=== PATIENT | female | born 1990 | race African-American/Black ===

== ENCOUNTER 2017-04-22 12:06 | Emergency (ER) | payer SELFPAY ==
[2017-04-22] MEDS ORDERED: Ondansetron HCl/PF 4 MG/2 ML Vial ONE (12:37)
[2017-04-22 13:15] LABS: Hematocrit 36.6 % (36.0-47.0); Mean Platelet Volume 5.1 fL (7.4-10.4); Red Blood Cell (RBC) Count 5.32 mill/uL (4.20-5.40); White Blood Cell (WBC) Count 6.8 thou/uL (4.8-10.8)
[2017-04-22 13:22] LABS: PTT 28.5 SEC (22.9-36.1); Prothrombin Time 13.7 SEC (12.0-14.7)
[2017-04-22 13:34] LABS: ALT (SGPT) Less than 7 U/L (8-55); AST (SGOT) 11 U/L (5-34); Alkaline Phosphatase 55 U/L (40-150); Anion Gap 13 mmol/L (10-20); BUN (Urea Nitrogen) 8 mg/dL (7.0-18.7); Bilirubin, Total 0.4 mg/dL (0.2-1.2); Calc. Creatinine Clearance 0 mL/min (70-130); Calcium 9.6 mg/dL (7.8-10.44); Carbon Dioxide 22 mmol/L (22-29); Chloride 105 mmol/L (98-107); Estimated GFR-MDRD Greater than 90; Globulin 4.1 g/dL (2.4-3.5); Lipase 67 U/L (8-78); Magnesium 2.1 mg/dL (1.6-2.6); Protein, Total 8.4 g/dL (6.0-8.3)
[2017-04-22 13:41] LABS: #Basophils 0.1 thou/uL (0.0-0.2); #Eosinphils 0.2 thou/uL (0.0-0.7); #Lymphocytes 1.3 thou/uL (1.20-3.40); #Monocytes 0.6 thou/uL (0.11-0.59); #Neutrophils 4.6 thou/uL (1.40-6.50); %Basophils 1.3 % (0.0-1.0); %Eosinophils 2.3 % (0.0-10.0); %Lymphocytes 19.7 % (21.0-51.0); %Monocytes 9.4 % (0.0-10.0); Acanthocytes SLIGHT = 1-5 cells (100X) (None Seen); Anisocytosis SLIGHT = 6-15 cells (100X) (0-5/hpf); Microcytosis SLIGHT = 6-15 cells (100X) (0-5/hpf)
--- NOTE | 2017-04-22 14:24 | ULT ---
PELVIC ULTRASOUND: Date: 04/22/17 HISTORY: patient with abdominal pain and vaginal bleeding. TECHNIQUE: Multiplanar Hi scale and color Doppler images were obtained in a transabdominal pelvic ultrasound. Spectral analysis of the Doppler waveforms of the ovaries were performed. FINDINGS: There is a gestational sac within the uterus. This contains a yolk sac and a pole. [place]-rump length of the pole is 2.31 cm, which would estimate gestational age at 9 weeks/0 days. No feta l heart rate was able to be detected within the pole. There is complex material within the cervix, which likely represents blood. No free fluid is seen in the pelvis. Both ovaries are normal in size and appearance and demonstrate normal internal flow. IMPRESSION: demise with likely ongoing spontaneous . POS: [facility]
== END 2017-04-22 15:20 | disposition home or self-care (01) ==
LOC: ERS 12:06
DX: O03.4 Incomplete spontaneous abortion without complication (principal); K21.9 Gastro-esophageal reflux disease without esophagitis; I10 Essential (primary) hypertension; J45.909 Unspecified asthma, uncomplicated; F32.9 Major depressive disorder, single episode, unspecified; F17.210 Nicotine dependence, cigarettes, uncomplicated
CPT/HCPCS: 76856; 80053; 83690; 83735; 84702; 85025; 85610; 85730; 86900; 86901; 88305; 96361; 96374; 96375; J2270; J2405

== ENCOUNTER 2017-07-30 21:51 | Emergency (ER) | payer SELFPAY ==
[2017-07-30] MEDS ORDERED: Albuterol Sulfate 2.5 mg/0.5 ml Neb ONE (22:39)
--- NOTE | 2017-07-30 22:49 | RAD ---
TWO VIEWS CHEST: Date: 07-30-17 Provided Clinical History: Cough. Comparison: 10-06-08 FINDINGS: Cardiac and mediastinal silhouette is within normal limits. Lungs appear clear. No pleural fluid or p neumothorax apparent. IMPRESSION: No evidence for an acute cardiopulmonary process. POS: [facility]
[2017-07-30 23:17] LABS: Pregnancy Test - Urine (BHCG) Negative (Negative); Pregu Control Background? CLEAR/WHITE (CLR/WHITE); Pregu Control Bar Appear? YES (CONTROL BAR); Specific Gravity 1.018 (1.002-1.036)
[2017-07-31] MEDS ORDERED: predniSONE 20 MG TAB ONE (00:31)
[2017-07-31] MEDS ORDERED: Azithromycin 250 MG TAB ONE (00:31)
[2017-07-31] MEDS ORDERED: Ketorolac Tromethamine 60 MG/2 ML VIAL ONE (00:31)
== END 2017-07-31 00:58 | disposition home or self-care (01) ==
LOC: ERS 21:51
DX: J40 Bronchitis, not specified as acute or chronic (principal); K21.9 Gastro-esophageal reflux disease without esophagitis; I10 Essential (primary) hypertension; F17.210 Nicotine dependence, cigarettes, uncomplicated
CPT/HCPCS: 71046; 81025; 94640; 96372; J1885; J7506; J7611

== ENCOUNTER 2017-10-09 19:51 | Emergency (ER) | payer SELFPAY ==
[2017-10-09] MEDS ORDERED: Ondansetron HCl/PF 4 MG/2 ML Vial ONE (21:15)
[2017-10-09] MEDS ORDERED: Morphine 4 MG/ML VIAL ONE (21:15)
[2017-10-09 21:18] LABS: Mean Corpuscular Hemoglobin 17.3 pg (27.0-31.0); Mean Corpuscular Volume 59.7 fl (81.0-99.0); Mean Platelet Volume 5.4 fL (7.4-10.4); Platelet Count 183 thou/uL (130-400); RBC Distribution Width 20.5 % (11.5-14.5); Red Blood Cell (RBC) Count 5.22 mill/uL (4.20-5.40); White Blood Cell (WBC) Count 10.5 thou/uL (4.8-10.8)
[2017-10-09 21:32] LABS: ALT (SGPT) Less than 7 U/L (8-55); AST (SGOT) 12 U/L (5-34); Albumin 4.2 g/dL (3.5-5.0); Alkaline Phosphatase 69 U/L (40-150); Anion Gap 13 mmol/L (10-20); BUN (Urea Nitrogen) 4 mg/dL (7.0-18.7); Bilirubin, Total 0.7 mg/dL (0.2-1.2); Calc. Creatinine Clearance 0 mL/min (70-130); Calcium 9.4 mg/dL (7.8-10.44); Carbon Dioxide 21 mmol/L (22-29); Chloride 104 mmol/L (98-107); Estimated GFR-MDRD Greater than 90; Glucose 89 mg/dL (70-105); Potassium 3.2 mmol/L (3.5-5.1); Protein, Total 8.2 g/dL (6.0-8.3); Sodium 135 mmol/L (136-145)
[2017-10-09 21:35] LABS: Anisocytosis SLIGHT = 6-15 cells (100X) (0-5/hpf); Hypochromia MODERATE=16-30 cells (100X) (0-5/hpf); Lymphocytes 6 % (21-51); MDiff Complete? YES; Microcytosis MODERATE=15-30 cells (100X) (0-5/hpf); Monocytes 8 % (0-10); Neutrophil 86 % (42-75); PLT Morphology Comment Appears Adequate; Reflex for Review?? YES
[2017-10-09] MEDS ORDERED: Lidocaine 1% (PF) 30 ML VIAL ONE (21:44)
[2017-10-09] MEDS ORDERED: HYDROcodone/Acetaminophen 5/325 mg Tablet ONE (23:11)
[2017-10-10] MEDS ORDERED: Cephalexin 250 MG CAP ONE (00:48)
== END 2017-10-10 00:59 | disposition home or self-care (01) ==
LOC: ERS 19:51
DX: L02.31 Cutaneous abscess of buttock (principal); K21.9 Gastro-esophageal reflux disease without esophagitis; I10 Essential (primary) hypertension; J45.909 Unspecified asthma, uncomplicated; F17.210 Nicotine dependence, cigarettes, uncomplicated; Z71.6 Tobacco abuse counseling
CPT/HCPCS: 10060; 36415; 80053; 85025; 85060; 87070; 87076; 87205; 96361; 96374; 96375; 99406; J2001; J2270; J2405

== ENCOUNTER 2018-01-23 16:28 | Emergency (ER) | payer SELFPAY ==
--- NOTE | 2018-01-27 01:02 | EKG ---
Test Reason : Blood Pressure : / mmHG Vent. Rate : 063 BPM Atrial Rate : 063 BPM P-R Int : 164 ms QRS Dur : 088 ms QT Int : 448 ms P-R-T Axes : 067 069 049 degrees QTc Int : 458 ms Normal sinus rhythm with sinus arrhythmia Possible Left atrial enlargement Nonspecific T wave abnormality Abnormal ECG Confirmed by YOSEF HANEY DO ([id number]), multimedia editor SALAS OJEDA ([id number]) on 01/27/2018 1:01:54 AM Referred By: Confirmed By:YOSEF HANEY DO
== END 2018-01-23 18:34 | disposition home or self-care (01) ==
LOC: ERS 16:28
DX: I10 Essential (primary) hypertension (principal); K21.9 Gastro-esophageal reflux disease without esophagitis; J45.909 Unspecified asthma, uncomplicated; F17.210 Nicotine dependence, cigarettes, uncomplicated
CPT/HCPCS: 93005

== ENCOUNTER 2018-12-27 17:23 | Emergency (ER) | payer SELFPAY ==
[2018-12-27 17:43] LABS: Bilirubin Small (Negative); Blood, Urine Negative (Negative); Clarity TURBID (Clear); Glucose, Urine (Dipstick) Negative (Negative); Leukocyte Small (Negative); Nitrite Negative (Negative); Protein, Urine (Dipstick) 30 mg/dL (Neg-Trace); Specific Gravity, Urine 1.031 (1.002-1.036)
[2018-12-27 17:45] LABS: Bacteria/HPF 2+ HPF (None Seen); Pregnancy Test - Urine (BHCG) POSITIVE (Negative); Pregu Control Background? CLEAR/WHITE (CLR/WHITE); Pregu Control Bar Appear? YES (CONTROL BAR); Specific Gravity 1.031 (1.002-1.036); WBC/HPF 21-50 HPF (0-3)
[2018-12-27 17:47] LABS: Pathc Cast-AUWi Flag 16.86 (0-2.49)
[2018-12-27 17:54] LABS: Hemoglobin 10.8 g/dL (12.0-16.0); Mean Corpuscular HGB CONC 32.2 g/dL (32.0-36.0); Mean Corpuscular Hemoglobin 22.7 pg (27.0-31.0); Mean Corpuscular Volume 70.6 fL (78.0-98.0); Mean Platelet Volume 9.7 fL (7.4-10.4); Platelet Count 203 thou/uL (130-400); RBC Distribution Width 18.3 % (11.5-14.5); Red Blood Cell (RBC) Count 4.77 mill/uL (4.20-5.40); White Blood Cell (WBC) Count 6.2 thou/uL (4.8-10.8)
[2018-12-27 17:55] LABS: Crystals/HPF 2+ CA OXALATE HPF (Negative); Hyaline Casts/LPF NONE SEEN LPF (0-3 Hyaline); Manual Microscopic Reviewed? No Path Casts Seen; RBC/HPF None Seen HPF (0-3)
[2018-12-27 18:14] LABS: #Basophils 0.1 thou/uL (0.0-0.2); #Eosinphils 0.2 thou/uL (0.0-0.7); #Lymphocytes 1.6 thou/uL (1.20-3.40); #Monocytes 0.5 thou/uL (0.11-0.59); #Neutrophils 3.8 thou/uL (1.40-6.50); %Basophils 1.5 % (0.0-1.0); %Eosinophils 3.8 % (0.0-10.0); %Lymphocytes 25.4 % (21.0-51.0); %Monocytes 7.6 % (0.0-10.0); %Neutrophils 61.7 % (42.0-75.0); Anisocytosis SLIGHT = 6-15 cells (100X) (0-5/hpf); Hypochromia SLIGHT = 6-15 cells (100X) (0-5/hpf); MDiff Complete? YES; Microcytosis SLIGHT = 6-15 cells (100X) (0-5/hpf); Platelet Morphology Comment Appears Adequate
== END 2018-12-27 20:16 | disposition left against medical advice (07) ==
LOC: ERS 17:23
DX: Z53.21 Procedure and treatment not carried out due to patient leaving prior to being seen by health care provider (principal)
CPT/HCPCS: 36415; 81003; 81015; 81025; 85025

== ENCOUNTER 2019-01-13 17:45 | Emergency (ER) | payer OTHER | END 2019-01-13 18:27 | disposition left against medical advice (07) | LOC: ERS 17:45 | DX: Z53.21 Procedure and treatment not carried out due to patient leaving prior to being seen by health care provider (principal) ==

== ENCOUNTER 2019-01-14 10:25 | Emergency (ER) | payer OTHER ==
--- NOTE | 2019-01-14 11:31 | ULT ---
Ultrasound abdomen limited: Right lower quadrant DATE: 01/14/2019 HISTORY: 28-year-old female with right lower quadrant abdominal pain. Nausea. FINDINGS: The appendix is not visualized. IMPRESSION: Nondiagnostic for appendicitis.
[2019-01-14 11:37] LABS: Bilirubin Negative (Negative); Blood, Urine Negative (Negative); Glucose, Urine (Dipstick) Negative (Negative); Leukocyte Negative (Negative); Nitrite Negative (Negative); Protein, Urine (Dipstick) Negative (Neg-Trace); Urobilinogen 0.2 mg/dL (Less than 2)
[2019-01-14 11:42] LABS: Clarity Clear (Clear); Pregnancy Test - Urine (BHCG) POSITIVE (Negative)
[2019-01-14 11:43] LABS: Pregu Control Background? CLEAR/WHITE (CLR/WHITE); Pregu Control Bar Appear? YES (CONTROL BAR)
--- NOTE | 2019-01-14 11:59 | ULT ---
Ultrasound early obstetrical: DATE: 01/14/2019 HISTORY: 28-year-old female in early presents with right lower quadrant abdominal/pelvic pain. FINDINGS: Uterus: 12.5 x 6.5 x 10 cm. Right ovary: 3.5 x 2.5 x 3 cm. Blood flow demonstrated. Left ovary: 4.5 x 2 x 2.5 cm. Blood flow demonstrated. 2.2 x 2 x 2 cm doughnut-shaped lesion in left ovary with 1.2 cm central cystic component with interme diate echoes. Perhaps this is a hemorrhagic corpus luteal cyst. Intrauterine gestational sac. Thin hypoechoic crescentic stripe around gestational sac probably fluid, probably blood. pole crown-rump length: 6.4 cm 12 weeks 5 days. heart rate: 163 bpm. No free fluid in cul-de-sac identified. IMPRESSION: 1. First trimester intrauterine live gestation. 2. Estimated gestational age 12 weeks 5 days. 3. Probable small amount of subchorionic hemorrhage. 4. Questionable corpus luteal hemorrhagic cyst in left ovary.
== END 2019-01-14 12:18 | disposition home or self-care (01) ==
LOC: ERS 10:25
DX: O99.89 Other specified diseases and conditions complicating pregnancy, childbirth and the puerperium (principal); R10.31 Right lower quadrant pain; I10 Essential (primary) hypertension; O99.331 Smoking (tobacco) complicating pregnancy, first trimester; F17.210 Nicotine dependence, cigarettes, uncomplicated; Z79.899 Other long term (current) drug therapy; Z3A.13 13 weeks gestation of pregnancy
CPT/HCPCS: 76705; 76856; 81003; 81025; 93976

== ENCOUNTER → 2019-04-02 | Day surgery (SDC) | payer OTHER ==
[~2019-04-02] MED LIST: Potassium Chloride 20 MEQ TAB PO SCH; hydrALAZINE 20 MG/ML VIAL SLOW IVP PRN
[2019-04-02 03:55] VITALS: BP 131/89; TEMP 98.4; BMI 23.6
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
[2019-04-02 05:30] LABS: #Basophils 0.1 thou/uL (0.0-0.2); #Eosinphils 0.2 thou/uL (0.0-0.7); #Monocytes 0.7 thou/uL (0.11-0.59); #Neutrophils 6.8 thou/uL (1.40-6.50); %Basophils 0.6 % (0.0-1.0); %Eosinophils 1.8 % (0.0-10.0); %Lymphocytes 20.4 % (21.0-51.0); %Monocytes 6.9 % (0.0-10.0); %Neutrophils 70.4 % (42.0-75.0); Hemoglobin 9.6 g/dL (12.0-16.0); Mean Corpuscular HGB CONC 33.6 g/dL (32.0-36.0); Mean Corpuscular Hemoglobin 24.6 pg (27.0-31.0); Mean Corpuscular Volume 73.2 fL (78.0-98.0); Mean Platelet Volume 9.8 fL (7.4-10.4); Platelet Count 158 thou/uL (130-400); RBC Distribution Width 14.5 % (11.5-14.5); White Blood Cell (WBC) Count 9.7 thou/uL (4.8-10.8)
[2019-04-02 06:06] LABS: ALT (SGPT) 13 U/L (8-55); AST (SGOT) 12 U/L (5-34); Albumin 3.4 g/dL (3.5-5.0); Alkaline Phosphatase 53 U/L (40-110); Anion Gap 11 mmol/L (10-20); BUN (Urea Nitrogen) Less than 4 mg/dL (7.0-18.7); Bilirubin, Total 0.4 mg/dL (0.2-1.2); Calc. Creatinine Clearance 144 mL/min (70-130); Calcium 8.9 mg/dL (7.8-10.44); Carbon Dioxide 22 mmol/L (22-29); Chloride 105 mmol/L (98-107); Estimated GFR-MDRD Greater than 90; Globulin 3.4 g/dL (2.4-3.5); Glucose 67 mg/dL (70-105); Protein, Total 6.8 g/dL (6.0-8.3); Sodium 135 mmol/L (136-145)
[2019-04-02 06:18] LABS: INR-International Normal Ratio 1.1; PTT 29.2 SEC (22.9-36.1); Prothrombin Time 14.2 SEC (12.0-14.7)
[2019-04-02 06:53] LABS: Bilirubin Negative (Negative); Blood, Urine Negative (Negative); Clarity Extra Turbid (Clear); Glucose, Urine (Dipstick) Normal (Negative); Leukocyte Negative Leu/uL (Negative); Nitrite Negative (Negative); Protein, Urine (Dipstick) 20 mg/dL (Neg-Trace); Squamous Epithelial 0-3 HPF (0-3)
[2019-04-02 06:55] LABS: Amphetamine Not Detected (NotDetected); Barbiturates Screen Not Detected (NotDetected); Benzodiazepine Screen Not Detected (NotDetected); Cocaine Metabolite Screen Not Detected (NotDetected); Medtox Control Line Valid? VALID (VALID); Medtox Reader # READER 4; Methadone Not Detected (NotDetected); Methamphetamine Not Detected (NotDetected); Opiate Screen Not Detected (NotDetected); Oxycodone Screen Not Detected (NotDetected); Phencyclidine (PCP) Not Detected (NotDetected); THC/Cannabinoid Screen Detected (NotDetected); Tricyclic Screen Not Detected (NotDetected)
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
[2019-04-02 07:24] LABS: Bacteria/HPF 1+ HPF (None Seen)
[2019-04-02 07:25] LABS: RBC/HPF 0-3 HPF (0-3)
[2019-04-02 07:28] LABS: Urine Culture Reflex Yes Yes
--- NOTE | 2019-04-02 15:27 | PDOC.EVN ---
Event Note - Event Note Event Note: Apparently patient d/c'd without BPP, but with reassuring NST and no ctx per report. Will ensure she has f/u in clinic.
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
== END | disposition home or self-care (01) ==
LOC: L&D/OP 02:58
PROVIDERS: ATTEND Emergency Medicine
DX: O99.89 Other specified diseases and conditions complicating pregnancy, childbirth and the puerperium (principal); R10.30 Lower abdominal pain, unspecified; O10.912 Unspecified pre-existing hypertension complicating pregnancy, second trimester; O99.512 Diseases of the respiratory system complicating pregnancy, second trimester; J45.909 Unspecified asthma, uncomplicated; O99.332 Smoking (tobacco) complicating pregnancy, second trimester; F17.210 Nicotine dependence, cigarettes, uncomplicated; Z3A.24 24 weeks gestation of pregnancy; Z79.82 Long term (current) use of aspirin; Z79.899 Other long term (current) drug therapy
CPT/HCPCS: 36415; 76815; 80053; 80306; 81001; 85025; 85384; 85610; 85730; 87086

== ENCOUNTER 2019-04-26 14:12 | Day surgery (SDC) | payer OTHER ==
[2019-04-26 15:08] VITALS: BP 115/75; TEMP 98.5; BMI 25.2
[2019-04-26] MEDS ORDERED: Acetaminophen 500 MG TAB ONE (15:18)
[2019-04-26] MEDS: Acetaminophen 500 MG TAB ONE (15:19)
[2019-04-26] MEDS ORDERED: Acetaminophen 500 MG TAB PO SCH (15:30)
[2019-04-26] MEDS ORDERED: Iron Sucrose Complex 500 MG in Sodium Chloride 0.9% 250 ML 250 ML IVPB SCH (16:00)
[2019-04-26 16:01] LABS: Iron 24 ug/dL (50-170); Iron Binding Capacity, Total 480 mcg/dL (265-497)
[2019-04-26 16:28] LABS: Ferritin 10.99 ng/mL (10-291)
--- NOTE | 2019-04-26 19:23 | PDOC.FPROB ---
FMR OB H&P: HPI - History of Present Illness Chief Complaint: Iron Transfusion Indentification: History of Present Illness: Pt is a 28 yo at 27.5 weeks by lmp c/w 10.3 week sono w/ hx of cHTN who presents for an iron transfusion as she is unable to tolerate PO iron. Hgb 9.6 on 04/18. She is coming from [facility], PCP - Dr. Grullon. She states she has been fatigued for the previous couple of weeks. She denies ROM, bleeding. She did endorse smoking, has not received her flu shot. 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 - Surgical History Sx History: none - Social History Social History: smokes 1/2-1 ppd, denies drug use, denies alcohol use - Family History Family History: non-contributory FMR OB H&P: Medications - Current Home Medications: Medication Instructions Recorded Confirmed Type Aspirin [Adult Low Dose Aspirin EC] 81 mg PO DAILY 04/02/19 04/26/19 History Ferrous Sulfate 1 tablet PO DAILY 04/02/19 04/26/19 History Nitrofurantoin Monohyd/M-Cryst 100 mg PO BID #10 cap 04/02/19 04/26/19 Rx [Macrobid] Pnv No.95/Ferrous Fum/Folic AC 1 tablet PO DAILY 04/02/19 04/26/19 History [ Formula Tablet] Allergies/Adverse Reactions: Allergies Allergy/AdvReac Type Severity Reaction Status Date / Time No Known Allergies Allergy Verified 04/26/19 15:03 FMR OB H&P: ROS - Review of Systems General: reports: fatigue. denies: fever/chills, weight/appetite/sleep changes ENT: denies: nasal congestion, rhinorrhea Cardiovascular: denies: chest pain, palpitation, edema Respiratory: denies: cough, congestion, shortness of breath Gastrointestinal: denies: abdominal pain, indigestion, bloating Genitourinary (Female): denies: incontinence, dysuria, hematuria Musculoskeletal: denies: pain, stiffness Neurologic: denies: numbness, syncope Integumentary: denies: itching, rash FMR OB H&P: Vital Signs - Maternal Vital signs: Vital Signs - First Documented Temp Pulse Resp BP Pulse Ox 98.5 F 86 18 115/75 97 04/26/19 15:02 04/26/19 15:02 04/26/19 15:02 04/26/19 15:02 04/26/19 15:02 - Heart Tones Baseline: 120 Variability: moderate FMR OB H&P: Physical Exam - Physical Exam General: NAD, awake, alert and oriented HEENT: PERRLA, EOMI Neck: FROM, trachea midline Heart: RRR, normal S1/S2, pulses present, no edema General: CTAB, no respiratory distress, no wheezing Abdomen: soft, gravid, non-tender, bowel sound present Musculoskeletal: normal gait and station, pulses present Neurological: cranial nerves II through XII intact, sensation to pain,touch and proprioception grossly normal Lymphatic: no purpura, no petechia FMR OB H&P: Results - Labs Lab results: Laboratory Results - last 24 hr 04/26/19 04/26/19 15:32 15:32 Iron 24 L TIBC 480 Ferritin 10.99 Vitamin B12 485 FMR OB H&P: A/P - Problem List (1) Anemia affecting Status: Acute Code(s): O99.019 - ANEMIA COMPLICATING , UNSPECIFIED TRIMESTER Disposition: Pt is a 28 yo at 27.5 wks here for an iron transfusion due to Hgb 9.6, unable to tolerate PO iron. # Anemia of - iron transfusion orders # cHTN - continue aspirin, BP 115/75 Dispo: d/c after iron transfusion Discussion: Date/Time: 04/26/191919 This H&P was discussed with [] and [] who agree with the above documentation and plan. Addendum - Attending - Attending Attestation Date/Time: 04/27/19 0983 I personally evaluated the patient and discussed the management with Dr. Villa I agree with the History, Examination, Assessment and Plan documented above with any addition or exceptions noted below. Present for iron infusion due to persistently low H&H and intolerance of PO iron. Infuse per protocol and d/c home after post infusion monitoring completed.
== END 2019-04-26 20:15 | disposition home or self-care (01) ==
LOC: L&D/OP 14:12
PROVIDERS: ATTEND Family Medicine
DX: O99.012 Anemia complicating pregnancy, second trimester (principal); D50.9 Iron deficiency anemia, unspecified; O10.912 Unspecified pre-existing hypertension complicating pregnancy, second trimester; O99.332 Smoking (tobacco) complicating pregnancy, second trimester; F17.210 Nicotine dependence, cigarettes, uncomplicated; O99.612 Diseases of the digestive system complicating pregnancy, second trimester; K02.9 Dental caries, unspecified; O34.12 Maternal care for benign tumor of corpus uteri, second trimester; D25.9 Leiomyoma of uterus, unspecified; Z3A.27 27 weeks gestation of pregnancy; Z79.82 Long term (current) use of aspirin; Z79.899 Other long term (current) drug therapy
CPT/HCPCS: 36415; 82607; 82728; 82747; 83540; 83550; 85014; J1756; J7050

== ENCOUNTER 2019-06-24 12:13 | Day surgery (SDC) | payer OTHER ==
[2019-06-24] MEDS ORDERED: hydrALAZINE 20 MG/ML VIAL SLOW IVP PRN (12:44)
--- NOTE | 2019-06-24 13:09 | PDOC.FPROB ---
FMR OB H&P: HPI - History of Present Illness Chief Complaint: elevated BP, leakage of fluid History of Present Illness: 29yo @ 36.1 by LMP c/w 10.3wk sono complicated by cHTN with superimposed preE, anemia, asthma, and tob abuse presents from clinic for elevated BP and leakage of fluid. Pt was at her routine OB appt this morning, had elevated BP to 154/98 with repeat to 138/80. Also complained of clear leakage of fluid for past 2 days described as wetting undergarments and worse with sitting and movement. Spec exam in office was negative for bleeding, discharge, or pooling of fluid. Was sent to L/D Triage for further eval and management. Pt endorses good movement, no change in vaginal discharge or vaginal bleeding. Does endorse low abdominal pressure for past week coming and going but always present, denies any acute contractions. Has had increased SOB for past week and slight worsening of LE edema. Endorses RUQ pain 2/2 baby being more in that location over past few weeks. Denies any fever/chills, JEFFERS, n/v, diarrhea, constipation. Primary Care Physician: [facility] Grullon/[facility] FMR OB H&P: Current - Care : 5 Para: 2113 Gestational age: 36.1 Due date: 07/21/19 Dating Criteria: LMP/10.3wk sono - OB Labs Blood type: B RH: positive Antibody Screen: negative HIV: negative RPR: negative HepBsAg: negative Rubella: immune Quad screen: negative Urine drug screen: positive (THC) Gonorrhea: negative Chlamydia: negative 1 hour gtt: 108 GBS: positive - Additional Ultrasound Additional: Placenta Anterior [place] 2% at 31.3 - low interval growth FMR OB H&P: History - Past Medical History PMH: Asthma - intermittent with last inhaler use about 1 year ago cHTN with superimposed preE Tob abuse Iron def Anemia THC abuse - OB History OB History: Premature delivery with daughter No PreE in past pregnancies, cHTN onset after last 8 years ago - 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 FMR OB H&P: Medications - Current Home Medications: Medication Instructions Recorded Confirmed Type Aspirin [Adult Low Dose Aspirin EC] 81 mg PO DAILY 04/02/19 06/24/19 History Pnv No.95/Ferrous Fum/Folic AC 1 tablet PO DAILY 04/02/19 06/24/19 History [ Formula Tablet] Allergies/Adverse Reactions: Allergies Allergy/AdvReac Type Severity Reaction Status Date / Time No Known Allergies Allergy Verified 06/24/19 12:36 FMR OB H&P: ROS - Review of Systems General: denies: fever/chills, weight/appetite/sleep changes, night sweats, fatigue Eyes: reports: floaters (chronic per pt). denies: eye pain, vision changes, scotomas ENT: denies: nasal congestion, rhinorrhea, sore throat Cardiovascular: denies: chest pain, palpitation Respiratory: reports: shortness of breath (for past week). denies: cough, congestion Gastrointestinal: reports: abdominal pain (lower, pressure-like). denies: nausea, vomiting, diarrhea, constipation Genitourinary (Female): reports: vaginal discharge (clear fluid for past 2 days) , vaginal pressure. denies: dysuria, vaginal pain, vaginal bleeding, contractions Neurologic: denies: syncope, seizures Integumentary: denies: rash FMR OB H&P: Vital Signs - Maternal Vital signs: BP 139/90 and 144/98. HR 85, RR 16, Tmax 98, 100% on RA. - Heart Tones Baseline: 140 (reactive) Variability: moderate Acceleration: present Deceleration: absent Category: category 1 [place] contractions every: none FMR OB H&P: Physical Exam - Physical Exam General: NAD, awake, alert and oriented (resting comfortably) HEENT: PERRLA, EOMI, MMM Neck: supple, trachea midline Heart: RRR, normal S1/S2, no murmurs/rubs/gallops, pulses present, no edema General: CTAB, no respiratory distress, good air movement, no rales/rhonchi, no wheezing Abdomen: soft, gravid, non-tender, bowel sound present, other (no RUQ tenderness to palpation) Neurological: no focal deficit Skin: no rash Lymphatic: no unusual bruising or bleeding Psychiatric: normal mood and affect FMR OB H&P: A/P - Problem List (1) Chronic hypertension with superimposed preeclampsia Current Visit: Yes Status: Acute Code(s): O11.9 - PRE-EXISTING HYPERTENSION WITH PRE-ECLAMPSIA, UNSP TRIMESTER (2) Tobacco abuse Current Visit: Yes Status: Chronic Code(s): Z72.0 - TOBACCO USE (3) Marijuana abuse Current Visit: Yes Status: Chronic Code(s): F12.10 - CANNABIS ABUSE, UNCOMPLICATED (4) IUGR (intrauterine growth restriction) Current Visit: Yes Status: Acute (5) Anemia affecting Current Visit: No Status: Chronic Code(s): O99.019 - ANEMIA COMPLICATING , UNSPECIFIED TRIMESTER (6) Asthma Current Visit: No Status: Chronic Code(s): J45.909 - UNSPECIFIED ASTHMA, UNCOMPLICATED Disposition: 29yo @ 36.1 by LMP c/w 10.3wk sono complicated by cHTN with superimposed preE, anemia, asthma, and tob abuse presents from clinic for elevated BP and leakage of fluid. #cHTN with superimposed preE - Records reviewed, BPs 140s/90s and most visits - BP in clinic 154/98 with repeat 138/80. First two in triage 139/90 and 144/98 , no severe range pressures, will cont to monitor - Cat 1 strip, accels, no decels, baseline 140, no contractions, will cont to monitor - Pr/Cr 0.34 at initial diagnosis of PrE about 2 weeks ago - No s/s of severe features on exam or history - Will obtain CBC, CMP, UA, Urine Pr/Cr and monitor BP - Has induction date of 07/04/19 #Leakage of fluid during 3rd trimester - 2 day history, clear vaginal fluid - Spec exam in clinic negative for pooling - Amnisure negative #IUGR - followed by MFM, likely 2/2 cHTN and superimposed preE and tob and fibroids - Rec delivery at 37-38wks, has induction date of 07/04/19 #GBS positive - will need abx at induction/labor #H/o delivery - On ike shots #Tob abuse - encouraged cessation, states she has not had a cigarrette all day, wants to quit #THC abuse - denies use during , UDS in early positive for THC, encourage cessation - UDS today #Asthma, intermittent - last inhaler use over 1 year ago PCP: CHAY Grullon/[facility] Dispo: Monitor BPs and FHT, PreE labs pending for severe features. Amnisure pending. Dispo pending labs and monitoring. Discussion: Date/Time: 06/24/19 1300 This H&P was discussed with Dr. Mosqueda and Dr. Montoya who agree with the above documentation and plan.
[2019-06-24 13:19] LABS: Bilirubin Negative (Negative); Blood, Urine Negative (Negative); Clarity Clear (Clear); Glucose, Urine (Dipstick) Normal (Negative); Leukocyte Negative Leu/uL (Negative); Nitrite Negative (Negative); Protein, Urine (Dipstick) 20 mg/dL (Neg-Trace); RBC/HPF 0-3 HPF (0-3); Squamous Epithelial 0-3 HPF (0-3); Urobilinogen Normal mg/dL (Less than 2); WBC/HPF 0-3 HPF (0-3)
[2019-06-24 13:24] LABS: Amnisure Test No Membranes Rupture (No Rupture)
[2019-06-24 13:25] LABS: Amnisure Internal Control QC ACCEPTABLE (ACCEPTABLE)
[2019-06-24 13:27] LABS: Mean Corpuscular HGB CONC 33.3 g/dL (32.0-36.0); Mean Corpuscular Hemoglobin 23.5 pg (27.0-31.0); Mean Corpuscular Volume 70.6 fL (78.0-98.0); Mean Platelet Volume 10.7 fL (7.4-10.4); Platelet Count 132 thou/uL (130-400); RBC Distribution Width 15.8 % (11.5-14.5); Red Blood Cell (RBC) Count 4.25 mill/uL (4.20-5.40); White Blood Cell (WBC) Count 5.9 thou/uL (4.8-10.8)
[2019-06-24 13:32] LABS: Creatinine, Urine 107.28 mg/dL (47-110)
[2019-06-24 13:40] LABS: Bacteria/HPF 1+ HPF (None Seen); Urine Culture Reflex Yes Yes
[2019-06-24 13:44] LABS: ALT (SGPT) Less than 7 U/L (8-55); AST (SGOT) 10 U/L (5-34); Albumin 3.3 g/dL (3.5-5.0); Alkaline Phosphatase 84 U/L (40-110); Anion Gap 9 mmol/L (10-20); BUN (Urea Nitrogen) Less than 4 mg/dL (7.0-18.7); Bilirubin, Total 0.4 mg/dL (0.2-1.2); Calc. Creatinine Clearance 0 mL/min (70-130); Calcium 8.5 mg/dL (7.8-10.44); Carbon Dioxide 24 mmol/L (22-29); Chloride 105 mmol/L (98-107); Estimated GFR-MDRD Greater than 90; Globulin 3.4 g/dL (2.4-3.5); Glucose 82 mg/dL (70-105); Protein, Total 6.7 g/dL (6.0-8.3); Sodium 135 mmol/L (136-145)
[2019-06-24 13:58] LABS: Amphetamine Not Detected (NotDetected); Barbiturates Screen Not Detected (NotDetected); Benzodiazepine Screen Not Detected (NotDetected); Cocaine Metabolite Screen Not Detected (NotDetected); Medtox Control Line Valid? VALID (VALID); Medtox Reader # READER 1; Methadone Not Detected (NotDetected); Methamphetamine Not Detected (NotDetected); Opiate Screen Not Detected (NotDetected); Oxycodone Screen Not Detected (NotDetected); Phencyclidine (PCP) Not Detected (NotDetected); THC/Cannabinoid Screen Not Detected (NotDetected); Tricyclic Screen Not Detected (NotDetected)
--- NOTE | 2019-06-24 14:48 | PDOC.BPN ---
<Manjinder Mosqueda - Last Filed: 06/24/19 14:46> - Brief Progress Note Urine Pr/Cr 0.32, was 0.33 last week in clinic CBC, CMP appropriate discussed case with Dr. Taveras, MFM agrees with betamethasone today and then tomorrow keep appt with MFM tomorrow Return to hospital for second dose of betamethasone tomorrow Discharged patient with strict precautions including BPs >160/110, has BP cuff at home, worsening JEFFERS, visual changes, or SOB. Also discussed labor precautions. Patient in understanding with plan, states she has no further questions. <Elio Montoya - Last Filed: 06/24/19 15:59> Addendum - Attending - Attending Attestation Date/Time: 06/24/19 9508 I personally evaluated the patient and discussed the management with Dr. Mosqueda/ Kishore. I agree with the History, Examination, Assessment and Plan documented above with any addition or exceptions noted below. 29 y.o. at 36.1 wks with h/o PreE superimposed on cHTN and IUGR here for eval of fluid leak and PreE progression. SROM ruled out. PreE ruled out. Will give 1st dose of Steroids in anticipation of late delivery risk to be repeated tomorrow after seeing MFM for BPP and growth as may need delivery prior to scheduled induction a week from Sunday. Strongly encoouraged smoking cessation. Kick counts advised.
[2019-06-24] MEDS ORDERED: Betamet Acet/Betamet Na Ph 30 MG/5 ML VIAL IM SCH (15:00)
== END 2019-06-24 14:56 | disposition home or self-care (01) ==
LOC: L&D/OP 12:13
PROVIDERS: ATTEND Family Medicine
DX: O11.3 Pre-existing hypertension with pre-eclampsia, third trimester (principal); O10.913 Unspecified pre-existing hypertension complicating pregnancy, third trimester; O36.5930 Maternal care for other known or suspected poor fetal growth, third trimester, not applicable or unspecified; O99.333 Smoking (tobacco) complicating pregnancy, third trimester; F17.210 Nicotine dependence, cigarettes, uncomplicated; O99.513 Diseases of the respiratory system complicating pregnancy, third trimester; J45.909 Unspecified asthma, uncomplicated; O99.89 Other specified diseases and conditions complicating pregnancy, childbirth and the puerperium; N89.8 Other specified noninflammatory disorders of vagina; O99.013 Anemia complicating pregnancy, third trimester; D50.9 Iron deficiency anemia, unspecified; Z3A.36 36 weeks gestation of pregnancy; Z79.82 Long term (current) use of aspirin
CPT/HCPCS: 36415; 80053; 80306; 81001; 82570; 84112; 84156; 85027; 87086; J0702

== ENCOUNTER 2019-06-25 14:40 | Day surgery (SDC) | payer OTHER ==
[2019-06-25 14:59] VITALS: BMI 26.2
[2019-06-25] MEDS ORDERED: Betamet Acet/Betamet Na Ph 30 MG/5 ML VIAL IM SCH (15:00)
== END 2019-06-25 15:10 | disposition home or self-care (01) ==
LOC: L&D/OP 14:40
PROVIDERS: ATTEND Family Medicine
DX: Z29.8 Encounter for other specified prophylactic measures (principal)
CPT/HCPCS: 96372

== ENCOUNTER 2019-07-04 18:00 | Inpatient (IN) | payer OTHER ==
[~2019-07-04 18:00] MED LIST changes: +PROPOFOL 200 MG/20 ML VIAL ONE; -Potassium Chloride 20 MEQ TAB PO SCH; +Succinylcholine Chloride 20 MG/ML 10 ml SYRINGE FS ONE; -hydrALAZINE 20 MG/ML VIAL SLOW IVP PRN
[2019-07-04 18:39] VITALS: BMI 25.7
--- NOTE | 2019-07-04 19:01 | PDOC.FPROB ---
FMR OB H&P: HPI - History of Present Illness Chief Complaint: IOL History of Present Illness: Pt is a @ 37.4 wks by LMP/10.3 week sono, ABDIRASHID 07/21/19 who presents for IOL 2/2 cHTN with superimposed Pre-E. She states she has episodes of blurry vision, RUQ pain, and pressures run 140's/100's at home. She denies any symptoms at this time. Pt is GBS positive. Continues with tobacco abuse, has hx of marijuana use during . She denies any contractions, rupture of membranes, vaginal discharge, vaginal bleeding, abdominal pain. Her previous pregnancies were vaginal deliveries without complications. She did not develop HTN until after her last . She has only required aspirin, seen by MFM who did not place pt on other medication. Hx of anemia requiring iron infusion, could not tolerate iron supplementation. FMR OB H&P: Current - Care : 5 Para: 2113 Gestational age: 37.4 Due date: 07/21/19 Dating Criteria: LMP/10.3 wk sono Course/Complications: cHTN with superimposed Pre-E Tobacco Abuse Marijuana use GBS positive - OB Labs Blood type: B RH: positive Antibody Screen: negative HIV: negative RPR: negative HepBsAg: negative Rubella: immune Quad screen: negative Urine drug screen: positive Gonorrhea: negative Chlamydia: negative GBS: positive H&H: 9.5/29.4 on 06/30 FMR OB H&P: History - Past Medical History PMH: HTN, Anemia, Depression, SAB x 1 - OB History OB History: SAB x 1, cHTN w/ superimposed Pre-E Previous pregnancies w/o complications, NVD - Surgical History Sx History: none - Social History Social History: 07/12 ppd tobacco, marijuana use - Family History Family History: non-contributory FMR OB H&P: Medications - Current Home Medications: Medication Instructions Recorded Confirmed Type Aspirin [Adult Low Dose Aspirin EC] 81 mg PO DAILY 04/02/19 07/04/19 History Pnv No.95/Ferrous Fum/Folic AC 1 tablet PO DAILY 04/02/19 07/04/19 History [ Formula Tablet] Sertraline HCl [Zoloft] 1 tab PO DAILY 07/04/19 07/04/19 History Allergies/Adverse Reactions: Allergies Allergy/AdvReac Type Severity Reaction Status Date / Time No Known Allergies Allergy Verified 07/04/19 18:37 FMR OB H&P: ROS - Review of Systems General: denies: fever/chills, weight/appetite/sleep changes ENT: denies: nasal congestion, rhinorrhea Cardiovascular: denies: chest pain, palpitation Respiratory: denies: cough, congestion Gastrointestinal: denies: abdominal pain, indigestion Genitourinary (Female): denies: incontinence, dysuria, hematuria Neurologic: denies: numbness, syncope Integumentary: denies: itching, rash Psychological: reports: depression. denies: anxiety FMR OB H&P: Vital Signs - Maternal Vital signs: 130/84, p 84 - Heart Tones Baseline: 140 Variability: moderate Acceleration: absent Deceleration: absent FMR OB H&P: Physical Exam - Physical Exam General: NAD, awake, alert and oriented Neck: supple, FROM Chest: non-tender to palpation Heart: RRR, normal S1/S2, no edema General: CTAB, no respiratory distress, good air movement, no wheezing Abdomen: soft, gravid, non-tender, bowel sound present Musculoskeletal: pulses present Neurological: cranial nerves II through XII intact, sensation to pain,touch and proprioception grossly normal Skin: no rash, capillary refill <2 seconds Lymphatic: no purpura, no petechia Psychiatric: good judgement and insight FMR OB H&P: A/P - Problem List (1) Chronic hypertension with superimposed preeclampsia Current Visit: No Status: Acute Code(s): O11.9 - PRE-EXISTING HYPERTENSION WITH PRE-ECLAMPSIA, UNSP TRIMESTER (2) HTN (hypertension) Current Visit: No Status: Acute Code(s): I10 - ESSENTIAL (PRIMARY) HYPERTENSION (3) IUGR (intrauterine growth restriction) Current Visit: No Status: Acute (4) Anemia affecting Current Visit: No Status: Chronic Code(s): O99.019 - ANEMIA COMPLICATING , UNSPECIFIED TRIMESTER (5) Marijuana abuse Current Visit: No Status: Chronic Code(s): F12.10 - CANNABIS ABUSE, UNCOMPLICATED (6) Tobacco abuse Current Visit: No Status: Chronic Code(s): Z72.0 - TOBACCO USE Disposition: Pt is a @ 37.4 wks by LMP/10.3 week sono, ABDIRASHID 1/13/20 who presents for IOL 2/2 cHTN with superimposed Pre-E: # IOL Initial assessment: finger tip, thick, high Denies contractions, vaginal fluid, bleeding, discharge - initiate cytotec at this time # cHTN w/ superimposed Pre-E # IUGR - monitor BP's; initial pressures not elevated - no symptoms at this time - start mg if needed # Tobacco Abuse - discuss cessation on discharge # Marijuana Use - Drug screen pending # Anemia - monitor; Hgb 9.5 on 06/30 # GBS positive - start penicillin Fluids: LR 125 mls/hr Diet: NPO Dispo: > 2 night stay Discussion: Date/Time: 07/04/191900 This H&P was discussed with [] and [] who agree with the above documentation and plan. Addendum - Attending - Attending Attestation Date/Time: 07/04/19 0845 I personally evaluated the patient and discussed the management with Dr. Villa I agree with the History, Examination, Assessment and Plan documented above with any addition or exceptions noted below. 29 yo at 37.4 wk. IOL for cHTN with superimposed pre-eclampsia. BP stable. GBS positive. SVE C/T/H. cytotec IOL. PNC started. Expectant management at this time. Patient has anemia and is s/p iron infusion but not taking PO iron due to GI upset. consider PP iron infusion if large blood loss.
[2019-07-04] MEDS ORDERED: Ondansetron PF 4 MG/2 ML Vial IVP PRN (19:02)
[2019-07-04] MEDS ORDERED: Promethazine HCl 25 MG/ML VIAL IM PRN (19:02)
[2019-07-04] MEDS ORDERED: Lidocaine 1% (PF) 30 ML VIAL SC PRN (19:02)
[2019-07-04] MEDS ORDERED: NS / Oxytocin 40 units/1000ml 1,000 ML IV PRN (19:02)
[2019-07-04] MEDS ORDERED: hydrALAZINE 20 MG/ML VIAL SLOW IVP PRN (19:02)
[2019-07-04 19:26] LABS: Hemoglobin 9.9 g/dL (12.0-16.0); Mean Corpuscular HGB CONC 33.8 g/dL (32.0-36.0); Mean Corpuscular Hemoglobin 23.3 pg (27.0-31.0); Mean Corpuscular Volume 69.1 fL (78.0-98.0); Mean Platelet Volume 11.5 fL (7.4-10.4); Platelet Count 159 thou/uL (130-400); RBC Distribution Width 16.2 % (11.5-14.5); Red Blood Cell (RBC) Count 4.25 mill/uL (4.20-5.40); White Blood Cell (WBC) Count 7.7 thou/uL (4.8-10.8)
[2019-07-04 19:35] LABS: ALT (SGPT) Less than 7 U/L (8-55); AST (SGOT) 9 U/L (5-34); Albumin 3.5 g/dL (3.5-5.0); Alkaline Phosphatase 94 U/L (40-110); Anion Gap 13 mmol/L (10-20); BUN (Urea Nitrogen) 4 mg/dL (7.0-18.7); Bilirubin, Total 0.5 mg/dL (0.2-1.2); Calc. Creatinine Clearance 153 mL/min (70-130); Calcium 8.6 mg/dL (7.8-10.44); Carbon Dioxide 22 mmol/L (22-29); Chloride 105 mmol/L (98-107); Estimated GFR-MDRD Greater than 90; Globulin 3.2 g/dL (2.4-3.5); Glucose 107 mg/dL (70-105); Protein, Total 6.7 g/dL (6.0-8.3); Sodium 137 mmol/L (136-145)
[2019-07-04 19:53] LABS: Syphilis Antibody Nonreactive (Nonreactive)
[2019-07-04] MEDS ORDERED: Penicillin G Potassium 5 MILL.UNITS in Sodium Chloride 0.9% 100 ML IVPB SCH (20:00)
[2019-07-04] MEDS ORDERED: Penicillin G 2.5 MILL.units 2.5 MILL.UNITS in Premix Bag 1 BAG IVPB SCH (20:00)
[2019-07-04] MEDS: Misoprostol 100 MCG TAB VAG SCH (20:22)
[2019-07-04 20:46] LABS: Amphetamine Not Detected (NotDetected); Barbiturates Screen Not Detected (NotDetected); Benzodiazepine Screen Not Detected (NotDetected); Cocaine Metabolite Screen Not Detected (NotDetected); Medtox Control Line Valid? VALID (VALID); Medtox Reader # READER 4; Methadone Not Detected (NotDetected); Methamphetamine Not Detected (NotDetected); Opiate Screen Not Detected (NotDetected); Oxycodone Screen Not Detected (NotDetected); Phencyclidine (PCP) Not Detected (NotDetected); THC/Cannabinoid Screen Not Detected (NotDetected); Tricyclic Screen Not Detected (NotDetected)
[2019-07-04 23:08] LABS: HBSAg Index 0.17 S/CO (0-0.99); Hep B Surf Ag Non-Reactive S/CO (NonReactive)
[2019-07-05] MEDS ORDERED: Bicitra 30 ML UDCUP ONE (00:14)
[2019-07-05] MEDS: Terbutaline Sulfate 1 MG/ML VIAL ONE ×2 (00:15→11:40)
[2019-07-05] MEDS ORDERED: MORPHINE 5 MG/10 ML PF VIAL ONE (00:20)
[2019-07-05] MEDS ORDERED: Ondansetron PF 4 MG/2 ML Vial ONE (00:20)
[2019-07-05] MEDS ORDERED: ePHEDrine/0.9% NaCl/PF SYRINGE 50 mg/10 ml ONE (00:20)
[2019-07-05] MEDS ORDERED: Oxytocin 10 UNITS/ML VIAL ONE ×2 (00:20→01:11)
--- NOTE | 2019-07-05 00:20 | PDOC.EVN ---
Event Note - Event Note Event Note: Residents paged by nursing staff at approx 1145 for concern for acute onset vaginal bleeding and abdominal pain. I evaluated the patient at beside with US. Concern for abruption on US. QBL 450 mL. patient has had had 1 severe BP and was treated with hydralazine. BP at time of my exam was 154/84. Given hx of cHTN w/ superimposed pre-eclampsia and now vaginal bleeding strong concern for abruption. patient SVE 1 cm and remote from delivery. Discussed R/B/A of continued labor vs primary c/s. Patient agreed to proceed with c/s due to concern for placental abruption. Anesthesia notified of urgent c/s.
[2019-07-05 01:14] LABS: Actual Bicarbonate (HCO3a) 26.5 mEq/L (22-28); Base Excess (BEa) -0.5 mEq/L (-2.0 to +3.0)
[2019-07-05 01:16] LABS: Actual Bicarbonate (HCO3v) 25 mEq/L (22-28); Base Excess -1.4 mEq/L (-2.0 to +3.0); pH (Cord, venous) 7.33 (7.32-7.43)
--- NOTE | 2019-07-05 01:24 | PDOC.LDPN ---
Labor & Delivery Progress Note - Subjective Subjective: comfortable, painful contractions, no concerns - Objective General: NAD, resting Uterine fundus: non tender Dilation: 1 Effacement: 25% Station: -2 FHT: category 1, variability present - Assessment (1) Chronic hypertension with superimposed preeclampsia Code(s): O11.9 - PRE-EXISTING HYPERTENSION WITH PRE-ECLAMPSIA, UNSP TRIMESTER Current Visit: No Status: Acute (2) HTN (hypertension) Code(s): I10 - ESSENTIAL (PRIMARY) HYPERTENSION Current Visit: No Status: Acute (3) IUGR (intrauterine growth restriction) Current Visit: No Status: Acute (4) Anemia affecting Code(s): O99.019 - ANEMIA COMPLICATING , UNSPECIFIED TRIMESTER Current Visit: No Status: Chronic Plan: continue plan of care -: Continue plan of care. Pt received cytotec. No complaints at this time. FHT's reassuring. Mother's BP's high normal.
[2019-07-05] MEDS ORDERED: Promethazine HCl 25 MG/ML VIAL IM PRN (01:54)
[2019-07-05] MEDS ORDERED: Meperidine HCl/PF 25 MG/ML VIAL SLOW IVP PRN (01:54)
[2019-07-05] MEDS ORDERED: Naloxone HCl 0.4 mg/ml Vial IVP PRN ×2 (01:54)
[2019-07-05] MEDS ORDERED: L&D-Morphine 4 MG/ML VIAL SLOW IVP PRN (01:54)
[2019-07-05] MEDS ORDERED: Promethazine HCl 25 MG SUPP PR PRN (01:54)
[2019-07-05] MEDS ORDERED: HYDROmorphone 2 MG/ML VIAL SLOW IVP PRN (01:54)
[2019-07-05] MEDS ORDERED: Ondansetron HCl/PF 4 MG/2 ML Vial IVP PRN (01:54)
[2019-07-05] MEDS ORDERED: Naloxone HCl 0.4 mg/ml Vial IV PRN (01:54)
[2019-07-05] MEDS ORDERED: Ondansetron PF 4 MG/2 ML Vial IVP PRN (01:54)
[2019-07-05] MEDS ORDERED: diphenhydrAMINE 50 MG/ML VIAL IVP PRN (01:54)
--- NOTE | 2019-07-05 01:58 | PDOC.OPDEL ---
OB Operative/Delivery Note Delivery Dr/Surgeon: Max Wall Assist: Pablo Pre-Delivery Diagnosis: medically indicated induction, non-reassuring tracing (concern for placental abruption) Procedure/Post Delivery Dx: primary low transverse CS Weeks gestation: 37 (37.5) Anesthesia: other (general) - Findings A Sex: male - 1 min: 8 - 5 min: 8 - Additional Findings/Plan Placenta delivered: spontaneous findings: low transverse hysterotomy without extension Estimated blood loss: 665 Compilations/Other Findings: Date of Procedure: 07/05/2019 Resident Surgeon: Max Wall Office Support Surgeon: Pablo Attending Surgeon: Skip Procedure: Primary low transverse caesarean section Preoperative Diagnosis: 1)Early Term intrauterine 2)Chronic HTN with REJI with severe range blood pressures 3)Vaginal Bleeding with concern for probable placental abruption 4)Anemia of 5)Marijuana use in 6)IUGR 7)GBS positive, adequately treated Postoperative Diagnosis: 1)Early Term intrauterine , delivered 2)Chronic HTN with REJI with severe range blood pressures 3)Placental Abruption 4)Anemia of 5)Marijuana use in 6)IUGR 7)GBS positive, adequately treated Anesthesia: spinal converted to general anesthesia Indications: The patient is a 29 year old @ 37.5 wks by LMP/10.3 week sono, ABDIRASHID 07/21/19, who presents for a scheduled mIOL 2/2 chronic htn with reji complicated by IUGR. After cytotec administration, she developed severe blood pressures and sudden vaginal bleeding with concern for a probable placental abruption. As a result, she was subsequently taken to the OR for an urgent c- section. Procedure in Detail: After risks, benefits, and alternatives were explained to the patient, she gave informed consent. Pre-operative antibiotics included Cefazolin 2 gram IV. The patient was taken to the operating room and spinal anesthesia was initiated. She was placed in the supine position with a left tilt and prepped and draped in usual sterile fashion. She was unable to tolerate the spinal anesthesia and subsequently required general anesthesia for the procedure. A Pfannenstiel incision was made with a scalpel and carried down to the level of the fascia which was sharply nicked. The fascial cut was extended bilaterally bluntly. The inferior and superior edges of the cut fascial edges were elevated with Bernard clamps and the underlying rectus muscles were sharply and bluntly dissected free. The recti were divided digitally and retracted manually. The peritoneum was entered bluntly and retracted manually. An Rajat-O Retractor was placed. A low transverse score was made with the scalpel and the uterus was entered in the midline with the scalpel. Clear fluid was seen. The hysterotomy was extended manually. The infant was noted to be vertex and was easily delivered by fundal pressure. Mouth and nares were bulb suctioned. Cord clamped and cut and a blood gas obtained. A grossly normal male was handed to waiting nurse. Minimal cord blood was obtained. Placenta was spontaneously extracted, found to be intact with 3 vessel cord and discarded. The endometrium was curetted with a dry lap. The uterus was closed with a running locking #1 Monocryl suture followed by a running non-locking #1 Monocryl imbricating suture. Two figure of eight stitches were needed on the left-sided aspect of the hysterotomy. Following this hemostasis was noted. The abdomen was suctioned free of clots. The hysterotomy was again noted to be hemostatic. The abdominal recti were inspected and found to be hemostatic. The peritoneum was closed with a running nonlocking 2-0 monocryl suture. The muscle was aproximated with #1 Monocryl using one figure of eight stitch. The fascia was closed with a running non- locking 0-PDS suture. The subcutaneous tissue was irrigated and there were no bleeders. The skin was approximated with latrell and a pressure dressing was placed. All counts were correct. The patient tolerated the procedure well and was taken to the recovery room in stable condition. Quantitative Blood Loss: 665 ml Complications: None Specimens: Cord gas sent to lab Findings: Grossly normal male with Apgars of 8 and 8. Grossly normal placenta with 3 vessel cord sent to pathology. Drains: Arango to gravity draining clear urine ATTENDING ADDENDUM: I was present for and supervised the entire case. pLTCS for placental abruption with subsequent category 2 tracing. Required general anesthesia due to ineffective spinal. TAGA male infant who required CPAP during the initial transition to life but went to well nursery. Went to LICU for PP magnesium and will remain there for 24 hours. Post delivery plan: recovery in LICU
[2019-07-05] MEDS ORDERED: Communication Order-Pharmacy FS SCH (02:00)
[2019-07-05] MEDS ORDERED: Calcium Gluconate 4.6 MEQ in Sodium Chloride 0.9% 100 ML IVPB PRN ×2 (02:08→02:20)
[2019-07-05] MEDS ORDERED: Magnesium Sulfate 20 GM/WATER 500 ML BAG IVPB SCH ×2 (02:15→02:20)
[2019-07-05] MEDS ORDERED: Lanolin Ointment 7 GM TUBE TOP PRN (02:20)
[2019-07-05] MEDS ORDERED: Milk Of Magnesia 30 ML UDCUP PO PRN (02:20)
[2019-07-05] MEDS ORDERED: hydrALAZINE 20 MG/ML VIAL SLOW IVP PRN (02:20)
[2019-07-05] MEDS: Magnesium Sulfate 20 GM in Dextrose 5% in Water 460 ML IV SCH ×3 (03:07→20:25)
[2019-07-05] MEDS ORDERED: Meperidine HCl/PF 25 MG/ML VIAL ONE (05:30)
[2019-07-05] MEDS ORDERED: Promethazine HCl 25 MG/ML VIAL ONE (05:30)
--- NOTE | 2019-07-05 05:31 | PDOC.OBPPN ---
FMR OB PN: Subj - Interval History Hospital Day: 2 Day: 0 Chief Complaint: Mg Check Indentification: G5 now [id number] Interval History: Pt is doing well. Denies any changes in mentation, lethargy. FMR OB PN: Obj - Maternal Vital signs: BP: 134/84 - Urine output I&O: 07/03/19 07/04/19 07/05/19 06:59 06:59 06:59 Output Total 785 Balance -785 - Pain Management Intervention: oral medication FMR OB PN: Exam - Physical Exam General: NAD, awake, alert and oriented Heart: RRR, normal S1/S2 General: CTAB, no respiratory distress Neurological: cranial nerves II through XII intact, sensation to pain,touch and proprioception grossly normal, DTR +2, strength +5, no focal deficit FMR OB PN: Data - Labs Lab results: Laboratory Results - last 24 hr 07/04/19 07/04/19 07/04/19 18:51 18:51 18:51 WBC RBC Hgb Hct MCV MCH MCHC RDW Plt Count MPV Bicarbonate Actual ABG Base Excess VBG HCO3 VBG Base Excess Cord ABG pH Cord ABG PCO2 (Eric) Cord VBG pH Cord VBG pCO2 Sodium Potassium Chloride Carbon Dioxide Anion Gap BUN Creatinine Estimated GFR (MDRD) Glucose Calcium Total Bilirubin AST ALT Alkaline Phosphatase Serum Total Protein Albumin Globulin Albumin/Globulin Ratio Urine Opiates Screen Ur Oxycodone Screen Urine Methadone Screen Ur Propoxyphene Screen Ur Barbiturates Screen Ur Tricyclics Screen Ur Phencyclidine Scrn Ur Amphetamines Screen U Methamphetamines Scrn U Benzodiazepines Scrn U Cocaine Metab Screen U Cannabinoids Screen Drug Screen Comment Syphilis IgG/IgM Ab Nonreactive Hep Bs Antigen Non-Reactive Blood Type B POSITIVE Antibody Screen NEGATIVE Crossmatch See Detail 07/04/19 07/04/19 07/04/19 18:51 18:51 20:21 WBC 7.7 RBC 4.25 Hgb 9.9 L Hct 29.4 L MCV 69.1 L MCH 23.3 L MCHC 33.8 RDW 16.2 H Plt Count 159 MPV 11.5 H Bicarbonate Actual ABG Base Excess VBG HCO3 VBG Base Excess Cord ABG pH Cord ABG PCO2 (Eric) Cord VBG pH Cord VBG pCO2 Sodium 137 Potassium 3.0 L Chloride 105 Carbon Dioxide 22 Anion Gap 13 BUN 4 L Creatinine 0.59 L Estimated GFR (MDRD) Greater than 90 Glucose 107 H Calcium 8.6 Total Bilirubin 0.5 AST 9 ALT Less than 7 L Alkaline Phosphatase 94 Serum Total Protein 6.7 Albumin 3.5 Globulin 3.2 Albumin/Globulin Ratio 1.1 L Urine Opiates Screen Not Detected Ur Oxycodone Screen Not Detected Urine Methadone Screen Not Detected Ur Propoxyphene Screen Not Detected Ur Barbiturates Screen Not Detected Ur Tricyclics Screen Not Detected Ur Phencyclidine Scrn Not Detected Ur Amphetamines Screen Not Detected U Methamphetamines Scrn Not Detected U Benzodiazepines Scrn Not Detected U Cocaine Metab Screen Not Detected U Cannabinoids Screen Not Detected Drug Screen Comment Syphilis IgG/IgM Ab Hep Bs Antigen Blood Type Antibody Screen Crossmatch 07/05/19 07/05/19 01:11 01:11 WBC RBC Hgb Hct MCV MCH MCHC RDW Plt Count MPV Bicarbonate Actual 26.5 ABG Base Excess -0.5 VBG HCO3 25 VBG Base Excess -1.4 Cord ABG pH 7.318 Cord ABG PCO2 (Eric) 52.9 Cord VBG pH 7.33 Cord VBG pCO2 48.5 Sodium Potassium Chloride Carbon Dioxide Anion Gap BUN Creatinine Estimated GFR (MDRD) Glucose Calcium Total Bilirubin AST ALT Alkaline Phosphatase Serum Total Protein Albumin Globulin Albumin/Globulin Ratio Urine Opiates Screen Ur Oxycodone Screen Urine Methadone Screen Ur Propoxyphene Screen Ur Barbiturates Screen Ur Tricyclics Screen Ur Phencyclidine Scrn Ur Amphetamines Screen U Methamphetamines Scrn U Benzodiazepines Scrn U Cocaine Metab Screen U Cannabinoids Screen Drug Screen Comment Syphilis IgG/IgM Ab Hep Bs Antigen Blood Type Antibody Screen Crossmatch FMR OB PN: A/P - Problem List (1) Chronic hypertension with superimposed preeclampsia Status: Acute Code(s): O11.9 - PRE-EXISTING HYPERTENSION WITH PRE-ECLAMPSIA, UNSP TRIMESTER (2) HTN (hypertension) Status: Acute Code(s): I10 - ESSENTIAL (PRIMARY) HYPERTENSION (3) IUGR (intrauterine growth restriction) Status: Acute (4) Anemia affecting Status: Chronic Code(s): O99.019 - ANEMIA COMPLICATING , UNSPECIFIED TRIMESTER Disposition: # Mg Check DTR's normal. SBP in 130's. Denies change in vision, JEFFERS, chest pain, SOB. Continues with UOP. No seizure activity. - continue Mg - Mg Checks q4h Discussion: Date/Time: 07/05/19 9874 This H&P was discussed with [] and [] who agree with the above documentation and plan. Addendum - Attending - Attending Attestation Date/Time: 07/05/19 1102 I personally evaluated the patient and discussed the management with Dr. Villa I agree with the History, Examination, Assessment and Plan documented above with any addition or exceptions noted below. Appropriate diuresis. BP < severe range. continue PP mg for 24 hrs. Case proctored by Dr. Elio Montoya.
--- NOTE | 2019-07-05 08:52 | PDOC.OBPPN ---
FMR OB PN: Subj - Interval History Hospital Day: 2 Day: 0 Chief Complaint: Magnesium check Indentification: 29 yo s/p rLTCS for placental abruption, CHTN w/ superimposed PreE Interval History: Denies JEFFERS, scotoma, increased swelling, RUQ pain. FMR OB PN: Obj - Maternal Vital signs: BP: 130/77 - Urine output I&O: 07/04/19 07/05/19 07/06/19 06:59 06:59 06:59 Output Total 785 Balance -785 Urine output last 3 hours: 300, 300, 125 mL per hour. FMR OB PN: Exam - Physical Exam Neurological: DTR +3 (upper/lower extremities b/l), no clonus : no edema Psychiatric: intact recent and remote memory, normal mood and affect FMR OB PN: Data - Labs Lab results: Laboratory Results - last 24 hr 07/04/19 07/04/19 07/04/19 18:51 18:51 18:51 WBC RBC Hgb Hct MCV MCH MCHC RDW Plt Count MPV Bicarbonate Actual ABG Base Excess VBG HCO3 VBG Base Excess Cord ABG pH Cord ABG PCO2 (Eric) Cord VBG pH Cord VBG pCO2 Sodium Potassium Chloride Carbon Dioxide Anion Gap BUN Creatinine Estimated GFR (MDRD) Glucose Calcium Total Bilirubin AST ALT Alkaline Phosphatase Serum Total Protein Albumin Globulin Albumin/Globulin Ratio Urine Opiates Screen Ur Oxycodone Screen Urine Methadone Screen Ur Propoxyphene Screen Ur Barbiturates Screen Ur Tricyclics Screen Ur Phencyclidine Scrn Ur Amphetamines Screen U Methamphetamines Scrn U Benzodiazepines Scrn U Cocaine Metab Screen U Cannabinoids Screen Drug Screen Comment Syphilis IgG/IgM Ab Nonreactive Hep Bs Antigen Non-Reactive Blood Type B POSITIVE Antibody Screen NEGATIVE Crossmatch See Detail 07/04/19 07/04/19 07/04/19 18:51 18:51 20:21 WBC 7.7 RBC 4.25 Hgb 9.9 L Hct 29.4 L MCV 69.1 L MCH 23.3 L MCHC 33.8 RDW 16.2 H Plt Count 159 MPV 11.5 H Bicarbonate Actual ABG Base Excess VBG HCO3 VBG Base Excess Cord ABG pH Cord ABG PCO2 (Eric) Cord VBG pH Cord VBG pCO2 Sodium 137 Potassium 3.0 L Chloride 105 Carbon Dioxide 22 Anion Gap 13 BUN 4 L Creatinine 0.59 L Estimated GFR (MDRD) Greater than 90 Glucose 107 H Calcium 8.6 Total Bilirubin 0.5 AST 9 ALT Less than 7 L Alkaline Phosphatase 94 Serum Total Protein 6.7 Albumin 3.5 Globulin 3.2 Albumin/Globulin Ratio 1.1 L Urine Opiates Screen Not Detected Ur Oxycodone Screen Not Detected Urine Methadone Screen Not Detected Ur Propoxyphene Screen Not Detected Ur Barbiturates Screen Not Detected Ur Tricyclics Screen Not Detected Ur Phencyclidine Scrn Not Detected Ur Amphetamines Screen Not Detected U Methamphetamines Scrn Not Detected U Benzodiazepines Scrn Not Detected U Cocaine Metab Screen Not Detected U Cannabinoids Screen Not Detected Drug Screen Comment Syphilis IgG/IgM Ab Hep Bs Antigen Blood Type Antibody Screen Crossmatch 07/05/19 07/05/19 01:11 01:11 WBC RBC Hgb Hct MCV MCH MCHC RDW Plt Count MPV Bicarbonate Actual 26.5 ABG Base Excess -0.5 VBG HCO3 25 VBG Base Excess -1.4 Cord ABG pH 7.318 Cord ABG PCO2 (Eric) 52.9 Cord VBG pH 7.33 Cord VBG pCO2 48.5 Sodium Potassium Chloride Carbon Dioxide Anion Gap BUN Creatinine Estimated GFR (MDRD) Glucose Calcium Total Bilirubin AST ALT Alkaline Phosphatase Serum Total Protein Albumin Globulin Albumin/Globulin Ratio Urine Opiates Screen Ur Oxycodone Screen Urine Methadone Screen Ur Propoxyphene Screen Ur Barbiturates Screen Ur Tricyclics Screen Ur Phencyclidine Scrn Ur Amphetamines Screen U Methamphetamines Scrn U Benzodiazepines Scrn U Cocaine Metab Screen U Cannabinoids Screen Drug Screen Comment Syphilis IgG/IgM Ab Hep Bs Antigen Blood Type Antibody Screen Crossmatch FMR OB PN: A/P - Problem List (1) Chronic hypertension with superimposed preeclampsia Status: Acute Code(s): O11.9 - PRE-EXISTING HYPERTENSION WITH PRE-ECLAMPSIA, UNSP TRIMESTER Discussion: Date/Time: 07/05/19 0850 Magnesium check: Asymptomatic. Max BP since last check was 147/89, averaging 130s/70-80s DTRs 3+, no clonus. UOP 3.4 mL/kg/hr Magnesium at 2g/hr Continue magnesium. Continue to monitor BPs. Recheck in 4 hours ~13:00. Kerry Sagastume MD Signature: Agree with above documentation. Case proctored by Dr. Frannie Montoya.
[2019-07-05] MEDS ORDERED: Adacel (T-DAP) 0.5 ML SYRINGE IM ONE (09:00)
[2019-07-05] MEDS ORDERED: Polyethylene Glycol 3350 17 GM Packet PO SCH (09:00)
[2019-07-05 09:23] LABS: #Basophils 0.1 thou/uL (0.0-0.2); #Eosinphils 0.2 thou/uL (0.0-0.7); #Lymphocytes 1.6 thou/uL (1.20-3.40); #Monocytes 0.9 thou/uL (0.11-0.59); #Neutrophils 10.6 thou/uL (1.40-6.50); %Basophils 0.5 % (0.0-1.0); %Eosinophils 1.2 % (0.0-10.0); %Lymphocytes 11.9 % (21.0-51.0); %Monocytes 6.4 % (0.0-10.0); Hemoglobin 8.3 g/dL (12.0-16.0); Mean Corpuscular Hemoglobin 23.1 pg (27.0-31.0); Mean Corpuscular Volume 70.1 fL (78.0-98.0); Mean Platelet Volume 10.6 fL (7.4-10.4); Platelet Count 132 thou/uL (130-400); Red Blood Cell (RBC) Count 3.57 mill/uL (4.20-5.40); White Blood Cell (WBC) Count 13.3 thou/uL (4.8-10.8)
[2019-07-05] MEDS ORDERED: Potassium Chloride 20 MEQ TAB PO SCH (09:30)
[2019-07-05] MEDS: HYDROcodone/Acetaminophen 5/325 mg Tablet PO PRN ×3 (09:56→20:13)
[2019-07-05] MEDS: Ferrous Sulfate 325 MG TAB PO SCH (11:38)
[2019-07-05] MEDS: Docusate 100 MG CAP PO SCH (11:38)
[2019-07-05] MEDS: Prenatal Vitamin 1 TAB PO SCH (11:38)
[2019-07-05] MEDS: Misoprostol 100 MCG TAB VAG SCH ×2 (11:40→18:07)
[2019-07-05] MEDS: Lactated Ringer's 1,000 ML IV SCH (11:40)
[2019-07-05] MEDS: Ibuprofen 800 MG TAB PO SCH ×3 (11:41→23:54)
--- NOTE | 2019-07-05 13:08 | PDOC.BPN ---
- Brief Progress Note FMR OB PN: Subj - Interval History Hospital Day: 2 Day: 0 Chief Complaint: Magnesium check Indentification: 29 yo s/p rLTCS for placental abruption, CHTN w/ superimposed PreE Interval History: Denies JEFFERS, scotoma, increased swelling, RUQ pain. FMR OB PN: Obj - Maternal Vital signs: BP: 119/70, max 129/78 since last check - Urine output I&O: Urine output last 3 hours: 200, 100, 100 FMR OB PN: Exam - Physical Exam Neurological: DTR 2+ (upper/lower extremities b/l), no clonus : no edema Psychiatric: intact recent and remote memory, normal mood and affect Date/Time: 07/05/19 0850 Magnesium check: Asymptomatic. BP averaging 120/70s DTRs 2+, no clonus. UOP adequate. Magnesium at 2g/hr Continue magnesium. Continue to monitor BPs. Recheck in 4 hours ~17:00. Kerry Sagastume MD
--- NOTE | 2019-07-05 18:44 | PDOC.BPN ---
- Brief Progress Note Indication: Mag check Subjective: patient is feeling well. Denies chest pain, shortness of breath, paresthesia, numbness, or headaches. Objective: Heart: RRR without MGR Lungs: CTAB Neuro: DTRs 2+ No edema. Urine output 175-250mL/hour for last 4 hours. Blood Pressures: WNL, (averaging 120s/70s) for last 4 hours. No severe range pressures documented. A/P: Discontinue Magnesium IV after 24 hours at approximately 0100 07/06. Continue current plan of care.
--- NOTE | 2019-07-05 23:34 | PDOC.BPN ---
- Brief Progress Note Indication: Mag check Subjective: patient is feeling well. Denies chest pain, shortness of breath, paresthesia, numbness. Complains of mild headache, attributes it to fatigue as she has not slept tonight. Objective: Heart: RRR without MGR Lungs: CTAB Neuro: DTRs 2+ No edema. Urine output ~50mL/hour for last 4 hours (still adequate) Blood Pressures: WNL, (averaging 120s/70s) for last 4 hours. No severe range pressures documented. A/P: Discontinue Magnesium IV after 24 hours at approximately 0100 07/06. Continue current plan of care.
--- NOTE | 2019-07-06 03:58 | PDOC.PP ---
Post Progress Note Post Day #: 1 Subjective: Doing well. Ate whataburger. Magnesium d/c'd. PO intake tolerated: yes Flatus: yes Ambulation: yes Weight Weight 70.307 kg - Physical Examination General: NAD Cardiovascular: no m/r/g, RRR Respiratory: clear to auscultation bilaterally, non-labored breathing Abdominal: + bowel sounds, appropriately TTP Skin: CS incision dry & intact Neurological: no gross focal deficits Psychiatric: A&Ox3, normal affect Result Diagrams: 07/06/19 03:49 07/06/19 03:49 Additional Labs: Post Labs Blood Type B POSITIVE 07/04/19 18:51 Hep Bs Antigen Non-Reactive S/CO (NonReactive) 07/04/19 18:51 (1) S/P section Code(s): Z98.891 - HISTORY OF UTERINE SCAR FROM PREVIOUS SURGERY Status: Acute (2) Placental abruption Code(s): O45.90 - PREMATURE SEPARATION OF PLACENTA, UNSP, UNSP TRIMESTER Status: Resolved Qualifiers: Trimester: third trimester Qualified Code(s): O45.93 - Premature separation of placenta, unspecified, third trimester (3) Chronic hypertension with superimposed preeclampsia Code(s): O11.9 - PRE-EXISTING HYPERTENSION WITH PRE-ECLAMPSIA, UNSP TRIMESTER Status: Chronic (4) IUGR (intrauterine growth restriction) Status: Acute (5) Depression affecting Code(s): O99.340 - [facility] MENTAL DISORDERS COMPLICATING , UNSP TRIMESTER; F32.9 - MAJOR DEPRESSIVE DISORDER, SINGLE EPISODE, UNSPECIFIED Status: Acute (6) Anemia affecting Code(s): O99.019 - ANEMIA COMPLICATING , UNSPECIFIED TRIMESTER Status : Chronic - Assessment/Plan 29 yo f s/p pLTCS 2/2 placental abruption and chronic htn with olga with severe range blood pressures, now off magnesium, doing well, pod #1. 1.)sIUP, delivered-s/p pLTCS. Continue routine postpartume care. 2.)Chronic HTN with OLGA with severe range blood pressures-off magnesium. ADAT. Monitor bps closely. WNL currently. She did require bp medications prior to . Will monitor closely. 3.)Placental abruption- resolved 4.)Depression affecting third trimester-continue sertraline daily 5.)Anemia affecting -continue po iron. Will check cbc 6 weeks . Nella Wall MD, PGY-3 Addendum - Attending - Attending Attestation Date/Time: 07/06/19 7688 I personally evaluated the patient and discussed the management with Dr. Wall I agree with the History, Examination, Assessment and Plan documented above with any addition or exceptions noted below. BP WNL off Mag. Incision well healing. Monitor for 24 hrs and could potential d/ c tomorrow. Remove latrell before d/c. H&H stable. continue PO iron.
[2019-07-06 04:14] LABS: Hemoglobin 8.2 g/dL (12.0-16.0); Mean Corpuscular HGB CONC 32.5 g/dL (32.0-36.0); Mean Corpuscular Hemoglobin 22.9 pg (27.0-31.0); Mean Corpuscular Volume 70.6 fL (78.0-98.0); Mean Platelet Volume 10.3 fL (7.4-10.4); Platelet Count 130 thou/uL (130-400); RBC Distribution Width 16.2 % (11.5-14.5); Red Blood Cell (RBC) Count 3.59 mill/uL (4.20-5.40); White Blood Cell (WBC) Count 10.2 thou/uL (4.8-10.8)
[2019-07-06 04:28] LABS: Anion Gap 13 mmol/L (10-20); BUN (Urea Nitrogen) Less than 4 mg/dL (7.0-18.7); Calc. Creatinine Clearance 156 mL/min (70-130); Calcium 7.4 mg/dL (7.8-10.44); Carbon Dioxide 23 mmol/L (22-29); Chloride 103 mmol/L (98-107); Estimated GFR-MDRD Greater than 90; Glucose 81 mg/dL (70-105); Potassium 3.5 mmol/L (3.5-5.1); Sodium 135 mmol/L (136-145)
[2019-07-06] MEDS: Docusate 100 MG CAP PO SCH ×3 (04:30→21:19)
[2019-07-06] MEDS: Ferrous Sulfate 325 MG TAB PO SCH ×3 (04:30→21:19)
[2019-07-06] MEDS: Lactated Ringer's 1,000 ML IV SCH (04:31)
[2019-07-06] MEDS: Misoprostol 100 MCG TAB VAG SCH (04:31)
[2019-07-06] MEDS: Ibuprofen 800 MG TAB PO SCH ×3 (07:07→21:19)
[2019-07-06] MEDS: Prenatal Vitamin 1 TAB PO SCH (07:51)
[2019-07-06] MEDS: HYDROcodone/Acetaminophen 5/325 mg Tablet PO PRN ×3 (07:52→18:38)
[2019-07-06] MEDS ORDERED: [UNRECOGNIZED DRUG - REMARK] PO SCH (09:00)
[2019-07-06] MEDS ORDERED: Sodium Chloride 0.9% 10 ML ONE ×2 (22:29→23:03)
--- NOTE | 2019-07-06 23:04 | PDOC.BPN ---
<Martha Cohen - Last Filed: 07/06/19 23:00> - Brief Progress Note While rounding on PP, was notified around 22:15 of BP >160/110 15 minutes apart. Patient given 5 mg hydralazine and recheck 30 minutes later still >160/ 110. Patient with dull headache. No significant swelling, RUQ tenderness. Endorses left eye pain. Advised to give 20 mg labetolol and recheck in 30 minutes. If BP still above parameters (>160/110), can consider restarting Mg. Patient with known hx of cHTN and had superimposed pre-E with severe range pressures in immediate PP period. She was started on Mg and continued Mg for 24 hours PP. Patient's BP has been well controlled with BP high to 135/85 up until this point. Patient with 700 mL urine output documented in last 16 hours. One unmeasured void noted. No significant clonus. Nurse to notify team of next BP check. Martha Cohen, PGY-3 <Macho Abdul - Last Filed: 07/06/19 23:32> Addendum - Attending - Attending Attestation Date/Time: 07/06/19 2332 I personally evaluated the patient and discussed the management with Dr. Cohen. I agree with the History, Examination, Assessment and Plan documented above with any addition or exceptions noted below.
[2019-07-06] MEDS ORDERED: Labetalol HCl 100 MG/20 ML VIAL SLOW IVP SCH (23:30)
[2019-07-06] MEDS: Simethicone Chewable 80 MG TAB PO PRN (23:35)
--- NOTE | 2019-07-07 01:18 | PDOC.BPN ---
- Brief Progress Note Repeat BP 30 minutes after administration of labetolol 20 mg was 148/89. Will start patient on labetolol 100 mg BID, starting in AM. Continue to monitor BP closely. Martha Cohen, DO PGY-3
[2019-07-07] MEDS: HYDROcodone/Acetaminophen 5/325 mg Tablet PO PRN ×3 (03:05→21:49)
--- NOTE | 2019-07-07 03:44 | PDOC.BPN ---
<Mara Ocampo - Last Filed: 07/07/19 03:42> - Brief Progress Note Paged for elevated BP of 185/115. Patient complaining of incisional pain and headache. Denies blurred vision, chest pain, shortness of breath or edema. Recheck BP 15 minutes later, after administration of pain medication, was 169/ 106. Gave 20mg of Labetalol IVP (2nd dose). Will recheck BP and monitor closely. <Macho Abdul - Last Filed: 07/07/19 07:11> Addendum - Attending - Attending Attestation Date/Time: 07/07/19 0710 see subsequent note.
[2019-07-07] MEDS ORDERED: Sodium Chloride 0.9% 10 ML ONE (03:58)
[2019-07-07] MEDS ORDERED: Labetalol HCl 100 MG/20 ML VIAL SLOW IVP SCH (04:00)
--- NOTE | 2019-07-07 04:13 | PDOC.BPN ---
<Martha Cohen - Last Filed: 07/07/19 04:00> - Brief Progress Note Evaluated patient and discussed plan going forward. Patient on lisinopril prior to which controlled her BP well. Repeat BP post labetolol administration pending. Will start patient on Procardia 30 mg XR. Labetolol PRN to keep BP <160/110. Discussed option to re-mg patient. Will hold off at this time and monitor closely. Martha Cohen, DO PGY-3 <Macho Abdul - Last Filed: 07/07/19 07:08> Addendum - Attending - Attending Attestation Date/Time: 07/07/19 0707 I personally evaluated the patient and discussed the management with Dr. Cohen. I agree with the History, Examination, Assessment and Plan documented above with any addition or exceptions noted below.
[2019-07-07] MEDS: NIFEdipine XL 30 MG TAB PO SCH ×2 (05:54→06:00)
[2019-07-07] MEDS: Ibuprofen 800 MG TAB PO SCH ×3 (05:59→21:49)
[2019-07-07] MEDS: Simethicone Chewable 80 MG TAB PO PRN ×2 (06:04→21:51)
--- NOTE | 2019-07-07 07:12 | PDOC.OBPPN ---
FMR OB PN: Subj - Interval History Hospital Day: 4 Day: 2 Chief Complaint: incisional pain Indentification: 29 yo , delivered at 37.4wga by RLTCS for placental abruption Interval History: BPs high ON. +flatus. No JEFFERS, vision change, RUQ pain, swelling. FMR OB PN: Obj - Maternal Vital signs: BP: 140/90 HR: 94 - Urine output I&O: 07/06/19 07/07/19 07/08/19 06:59 06:59 06:59 Intake Total 100 2000 Output Total 1450 Balance 100 550 - Lochia Lochia: downtrending, reports passage of 2 clots overnight - Pain Management Intervention: oral medication (continue [place] prn) FMR OB PN: Exam - Physical Exam General: NAD, awake, alert and oriented Heart: no edema General: no respiratory distress Abdomen: gravid Deviation from normal: tender to palpation, uterus firm and at umbilicus, incision c/d/i, latrell. Psychiatric: intact recent and remote memory, normal mood and affect FMR OB PN: A/P - Problem List (1) Chronic hypertension with superimposed preeclampsia Current Visit: No Status: Chronic Code(s): O11.9 - PRE-EXISTING HYPERTENSION WITH PRE-ECLAMPSIA, UNSP TRIMESTER Disposition: inpatient, on . Possible d/c 07/08 or 07/09 Discussion: Date/Time: 07/07/19 0711 29 yo F s/p pLTCS 2/2 placental abruption and chronic htn with superimposed PreE with severe range blood pressures, now off magnesium, doing well, pod #2. 1) sIUP, delivered-s/p pLTCS. Continue routine care. 2) Chronic HTN with REJI with severe range blood pressures- off magnesium. Monitor bps closely. Overnight had 2 severe range BPs. Received labetalol x2. Procardia started this AM. She did require BP medications (lisinopril) prior to . Plans to bottle feed. Will monitor closely. Continue procardia 30 XR daily. Labetalol prn. Goal < 160/90. 3) Placental abruption- resolved 4) Depression affecting third trimester-continue sertraline daily 5) Anemia affecting - continue po iron. Will check cbc 6 weeks . Signature: Kerry Sagastume MD PGY1 Addendum - Attending - Attending Attestation Date/Time: 07/08/19 7911 I personally evaluated the patient and discussed the management with the team. I agree with the History, Examination, Assessment and Plan documented above with any addition or exceptions noted below. No severe signs/symptom suggestive of need for repeat magnesium. I believe we are mostly needed to control her chronic hypertension.
[2019-07-07] MEDS ORDERED: Labetalol 100 MG TAB PO SCH (09:00)
[2019-07-07] MEDS: Prenatal Vitamin 1 TAB PO SCH (09:01)
[2019-07-07] MEDS: Ferrous Sulfate 325 MG TAB PO SCH ×2 (09:01→21:50)
[2019-07-07] MEDS: Docusate 100 MG CAP PO SCH ×2 (09:01→21:49)
[2019-07-08] MEDS: HYDROcodone/Acetaminophen 5/325 mg Tablet PO PRN ×2 (02:15→12:24)
[2019-07-08] MEDS: Labetalol HCl 100 MG/20 ML VIAL SLOW IVP PRN ×2 (02:35→05:20)
--- NOTE | 2019-07-08 02:53 | PDOC.BPN ---
<Martha Cohen - Last Filed: 07/08/19 02:49> - Brief Progress Note Received page at appx 2:15 regarding elevated BP of 155/99 and 172/101 15 minutes apart. Advised to give 20 mg labetolol IV and recheck in 30 minutes. Patient started on Nifedipine XR 30 mg this AM. Her BP's have been well controlled in the 120's/80's up until 1:30 AM. Will continue to monitor closely. <Christiana Meyers - Last Filed: 07/08/19 21:47> - Brief Progress Note Attending note: Chart reviewed. Case discussed with resident. Patient asymptomatic. Diuresed well. Appears medication is not lasting 24 hours in patient. Will change to BID dosing. Do not feel this is related to continue preeclampsia. Consider trending labs in AM to verify. Guillermo
[2019-07-08] MEDS ORDERED: Sodium Chloride 0.9% 10 ML ONE (05:08)
--- NOTE | 2019-07-08 06:16 | PDOC.BPN ---
- Brief Progress Note BP after labetolol 164/100 with repeat BP 15 min later via manual cuff 160/90. Patient given additional dose of labetolol 20 mg IV, as well as 40 mg PO lasix to assist with diuresis. Urine output has been adequate per nursing staff. 1450 mL out in last 24 hours. No clonus. Denies vision changes, headache, RUQ pain, increased swelling. BP's over the last two nights have spiked during the night. Will BID dose nifedipine.
[2019-07-08] MEDS: Ibuprofen 800 MG TAB PO SCH ×3 (06:29→21:03)
[2019-07-08] MEDS ORDERED: Furosemide 40 MG TAB PO SCH (06:30)
--- NOTE | 2019-07-08 06:34 | PDOC.OBPPN ---
FMR OB PN: Subj - Interval History Hospital Day: 5 Day: POD #3 (very early in the morning on 07/05) Chief Complaint: mild headache. Indentification: 29 now [id number] at 37.4 wga by LMP/10.3 wk sono Interval History: BPs up ON. Labetalol x2 given. No vision change. +BM this AM. Pain better. FMR OB PN: Obj - Maternal Vital signs: BP: 160/90 HR: 80 - Urine output I&O: 07/06/19 07/07/19 07/08/19 06:59 06:59 06:59 Intake Total 100 2000 Output Total 1450 Balance 100 550 - Lochia Lochia: downtrending. Denied any bleeding or clots. - Pain Management Pain scale: 3 Intervention: oral medication (and simethicone) FMR OB PN: Exam - Physical Exam General: NAD, awake, alert and oriented Heart: RRR General: no respiratory distress Abdomen: soft, gravid, other (pfannestiel incision well healing, latrell in, clean/dry/intact) Deviation from normal: uterus at umbilicus, less tender and less distended than yesterday Neurological: no focal deficit Skin: no rash Lymphatic: no unusual bruising or bleeding Psychiatric: intact recent and remote memory, normal mood and affect FMR OB PN: Data - Labs Lab results: Laboratory Results - last 24 hr 07/04/19 18:51 Crossmatch See Detail FMR OB PN: A/P - Problem List (1) Chronic hypertension with superimposed preeclampsia Current Visit: No Status: Chronic Code(s): O11.9 - PRE-EXISTING HYPERTENSION WITH PRE-ECLAMPSIA, UNSP TRIMESTER Disposition: continue inpatient mgmt Discussion: Date/Time: 07/08/19 0633 29 yo F s/p pLTCS 2/2 placental abruption and chronic htn with superimposed PreE with severe range blood pressures, now off magnesium, doing well, pod #3. 1) sIUP, delivered-s/p pLTCS. Continue routine care. 2) Chronic HTN with REJI with severe range blood pressures- off magnesium. Monitor bps closely. Overnight had 2 severe range BPs. Received labetalol x2. Procardia started this AM. She did require BP medications (lisinopril) prior to . Plans to bottle feed. Will monitor closely. Increase procardia 30 XR BID. Labetalol prn. Goal < 160/90. 3) Placental abruption- resolved 4) Depression affecting third trimester-continue sertraline daily 5) Anemia affecting - continue po iron. Will check cbc 6 weeks . Signature: Kerry Sagastume MD PGY1 Addendum - Attending - Attending Attestation Date/Time: 07/08/19 3605 I personally evaluated the patient and discussed the management with continue bp management. I agree with the History, Examination, Assessment and Plan documented above with any addition or exceptions noted below.
[2019-07-08] MEDS: Ferrous Sulfate 325 MG TAB PO SCH ×2 (07:55→21:03)
[2019-07-08] MEDS: Prenatal Vitamin 1 TAB PO SCH (07:56)
[2019-07-08] MEDS: Docusate 100 MG CAP PO SCH ×3 (07:56→23:37)
[2019-07-08] MEDS: NIFEdipine XL 30 MG TAB PO SCH ×2 (07:56→21:02)
[2019-07-08] MEDS ORDERED: NIFEdipine XL 30 MG TAB PO SCH (09:00)
[2019-07-09] MEDS: Ibuprofen 800 MG TAB PO SCH ×2 (04:53→14:57)
[2019-07-09 06:57] LABS: Anion Gap 12 mmol/L (10-20); BUN (Urea Nitrogen) 8 mg/dL (7.0-18.7); Calc. Creatinine Clearance 139 mL/min (70-130); Calcium 8.8 mg/dL (7.8-10.44); Carbon Dioxide 25 mmol/L (22-29); Chloride 106 mmol/L (98-107); Estimated GFR-MDRD Greater than 90; Glucose 76 mg/dL (70-105); Potassium 3.6 mmol/L (3.5-5.1); Sodium 139 mmol/L (136-145)
--- NOTE | 2019-07-09 07:23 | PDOC.OBPPN ---
FMR OB PN: Subj - Interval History Hospital Day: 6 Day: 4 Chief Complaint: none Indentification: 29 yo at 37.4 wga by LMP/10.3 wk sono Interval History: Denies pain, no bleeding. BP max overnight 150/94. +flatus. Had BM FMR OB PN: Obj - Maternal Vital signs: BP: 142/96 at 00:00, 150/94 at 04:50 AM HR: 80 RR: 18 Tmax: 98.7 F Pox: 99% on RA - Urine output I&O: 07/08/19 07/09/19 07/10/19 06:59 06:59 06:59 Intake Total 480 Output Total 650 Balance -170 - Lochia Lochia: downtrending - Pain Management Pain scale: 0 Intervention: oral medication FMR OB PN: Exam - Physical Exam General: NAD, awake, alert and oriented Heart: no edema General: no respiratory distress Abdomen: soft Deviation from normal: uterus firm 1 finger-width below umbilicus Neurological: no focal deficit : incision healing well, no erythema, no edema, no drainage, appropriately tender, other (latrell in place) FMR OB PN: Data - Labs Lab results: Laboratory Results - last 24 hr 07/09/19 06:23 Sodium 139 Potassium 3.6 Chloride 106 Carbon Dioxide 25 Anion Gap 12 BUN 8 Creatinine 0.65 Estimated GFR (MDRD) Greater than 90 Glucose 76 Calcium 8.8 FMR OB PN: A/P - Problem List (1) Chronic hypertension with superimposed preeclampsia Current Visit: No Status: Chronic Code(s): O11.9 - PRE-EXISTING HYPERTENSION WITH PRE-ECLAMPSIA, UNSP TRIMESTER Disposition: care. Likely d/c today if BP stable this AM. Will remove latrell prior to d/c or on Sunday when she follows up at [facility]. Discussion: Date/Time: 07/09/19 0723 29 yo F s/p pLTCS 2/2 placental abruption and chronic htn with superimposed PreE with severe range blood pressures, now off magnesium, doing well, pod #3. 1) sIUP, delivered-s/p pLTCS. Continue routine care. 2) Chronic HTN with REJI with severe range blood pressures- off magnesium. Monitor BPs closely. Procardia 30XR BID. She did require BP medications ( lisinopril) prior to . Plans to bottle feed. Breasts are wrapped and tender. Labetalol prn. Goal < 160/90. 3) Placental abruption- resolved 4) Depression affecting third trimester-continue sertraline daily 5) Anemia affecting - continue po iron. Will check cbc 6 weeks . Signature: Hugh Sagastume MD PGY1 Addendum - Attending - Attending Attestation Date/Time: 07/09/19 1201 I personally evaluated the patient and discussed the management with Dr. Sagastume. I agree with the History, Examination, Assessment and Plan documented above with any addition or exceptions noted below. Still no severe symptoms. Unremarkable exam. Pressures improved as I believe procardia likely reaching ss. Dc today with f/u tomorrow for bp check.
[2019-07-09 08:35] VITALS: TEMP 98.8
[2019-07-09] MEDS: Prenatal Vitamin 1 TAB PO SCH (08:42)
[2019-07-09] MEDS: Ferrous Sulfate 325 MG TAB PO SCH (08:42)
[2019-07-09] MEDS: NIFEdipine XL 30 MG TAB PO SCH (08:42)
[2019-07-09] MEDS: Docusate 100 MG CAP PO SCH (08:43)
[2019-07-09] MEDS: HYDROcodone/Acetaminophen 5/325 mg Tablet PO PRN (08:59)
[2019-07-09 13:26] VITALS: BP 136/82
--- NOTE | 2019-07-11 06:11 | PQF ---
Jaison Valdivia MD [id number] CLINICAL DOCUMENTATION CLARIFICATION FORM: POST DISCHARGE Addendum to original discharge summary date: ____ Late entry note date: __ DATE:07/11/2018 ATTN: Jaison Valdivia MD Please exercise your independent, professional judgment in responding to the clarification form. Clinical indicators are provided on the bottom of this form for your review Please check appropriate box(s): [ ] Acute blood loss anemia [ ] Post-op anemia related to acute blood loss [ ] Anemia: [ ] Aplastic [ ] Nutritional [ ] Drug induced (specify) ___ [ ] Hemolytic [ ] Hereditary [ ] Acquired [ ] Autoimmune [ ] Non-autoimmune [ ] Enzyme disorder [ ] Chronic Anemia: [ ] Blood loss [ ] Hemolytic [ ] Simple [ ] Due to Vitamin B12 Deficiency [ ] Other [ ] Anemia of Chronic Disease (please specify) [ x ] Other diagnosis Anemia of present on admission, Acute on chronic anemia 2/2 blood loss. [ ] Unable to determine For continuity of documentation, please document condition throughout progress notes and discharge summary. Thank You. CLINICAL INDICATORS - SIGNS / SYMPTOMS / LABS - Hx of anemia requiring iron infusion- H&P, 07/05, Jose lafleur MD - Anemia affecting - H&P, 07/05, Jose lafleur MD - HGB: 9.9L on 07/04, 8.3L on 07/05, 8.2L on 07/06 - Quantitative blood loss: 665ml- L and D report, 07/05, Skip Blackwood MD - HCT: 29.4L on 07/04, 25.3L on 07/06 RISK FACTORS - Primary low transverse caesarean section- L and D report, 07/05, Skip Blackwood MD TREATMENTS: - Pnv No:95/Ferrous fum .Tablet- 07/02 (This form is maintained as a part of the permanent medical record) 2014 [email or web address] All Rights Reserved [employer]
== END 2019-07-09 15:30 | disposition home or self-care (01) | DRG 788 ==
LOC: L&D 18:06 → 3SW 07-06 04:15
PROVIDERS: ADMIT Family Medicine; ATTEND Family Medicine
PROC: 10D00Z0 Extraction of Products of Conception, High, Open Approach (ICD-10-PCS; principal; 2019-07-05)
DX: O11.4 Pre-existing hypertension with pre-eclampsia, complicating childbirth (principal); O45.93 Premature separation of placenta, unspecified, third trimester; O99.02 Anemia complicating childbirth; O99.344 Other mental disorders complicating childbirth; F32.9 Major depressive disorder, single episode, unspecified; O99.824 Streptococcus B carrier state complicating childbirth; O36.5930 Maternal care for other known or suspected poor fetal growth, third trimester, not applicable or unspecified; D50.0 Iron deficiency anemia secondary to blood loss (chronic); O99.324 Drug use complicating childbirth; F12.10 Cannabis abuse, uncomplicated; Z3A.37 37 weeks gestation of pregnancy; Z37.0 Single live birth
CPT/HCPCS: 36415; 51702; 80048; 80053; 80306; 82805; 83735; 85025; 85027; 86780; 86850; 86900; 86901; 86922; 87340; 88307; J0360; J0690; J1170; J2175; J2274; J2405; J2540; J2550; J2590; J2704; J3105; J3475; J3490; J7070

== ENCOUNTER 2020-08-16 16:55 | Emergency (ER) | payer OTHER ==
[2020-08-16] MEDS ORDERED: Lidocaine 1% w/Epinephrine 1:100K 20 ML VIAL ONE ×3 (18:31→18:35)
== END 2020-08-16 20:13 | disposition home or self-care (01) ==
LOC: ERS 16:55
DX: K64.5 Perianal venous thrombosis (principal); I10 Essential (primary) hypertension; K21.9 Gastro-esophageal reflux disease without esophagitis; J45.909 Unspecified asthma, uncomplicated; D64.9 Anemia, unspecified; F17.210 Nicotine dependence, cigarettes, uncomplicated
CPT/HCPCS: 46083

== ENCOUNTER 2021-01-05 12:48 | Emergency (ER) | payer OTHER ==
[2021-01-05] MEDS ORDERED: HYDROcodone/Acetaminophen 5/325 mg Tablet ONE (15:17)
== END 2021-01-05 15:42 | disposition home or self-care (01) ==
LOC: ERS 12:48
DX: L02.01 Cutaneous abscess of face (principal); K03.81 Cracked tooth; K02.9 Dental caries, unspecified; F17.210 Nicotine dependence, cigarettes, uncomplicated; I10 Essential (primary) hypertension; Z79.899 Other long term (current) drug therapy
CPT/HCPCS: 99283

== ENCOUNTER 2021-09-07 08:50 | Emergency (ER) | payer OTHER ==
[2021-09-07] MEDS ORDERED: Xylocaine 1% w/ Epi 1:100K 10 ML VIAL ONE ×3 (09:49→10:03)
== END 2021-09-07 10:40 | disposition home or self-care (01) ==
LOC: ERS 08:50
DX: L02.31 Cutaneous abscess of buttock (principal); I10 Essential (primary) hypertension; K21.9 Gastro-esophageal reflux disease without esophagitis; D64.9 Anemia, unspecified; J45.909 Unspecified asthma, uncomplicated; F17.210 Nicotine dependence, cigarettes, uncomplicated
CPT/HCPCS: 10060

== ENCOUNTER 2021-12-23 15:27 | Emergency (ER) | payer OTHER ==
[2021-12-23] MEDS ORDERED: Ketorolac Tromethamine 30 MG/ML VIAL ONE (16:25)
== END 2021-12-23 17:06 | disposition home or self-care (01) ==
LOC: MERGE 15:27 → ERS 15:27
DX: S93.402A Sprain of unspecified ligament of left ankle, initial encounter (principal); W10.9XXA Fall (on) (from) unspecified stairs and steps, initial encounter; J45.909 Unspecified asthma, uncomplicated; I10 Essential (primary) hypertension; F17.210 Nicotine dependence, cigarettes, uncomplicated
CPT/HCPCS: 96372; J1885

== ENCOUNTER 2022-01-17 17:34 | Emergency (ER) | payer SELFPAY ==
[2022-01-17] MEDS ORDERED: Lidocaine 1% PF 5 ML VIAL ONE (18:25)
[2022-01-17] MEDS ORDERED: HYDROcodone/Acetaminophen 5/325 mg Tablet ONE (19:14)
== END 2022-01-17 19:44 | disposition home or self-care (01) ==
LOC: ERS 17:34
DX: L02.31 Cutaneous abscess of buttock (principal); I10 Essential (primary) hypertension; J45.909 Unspecified asthma, uncomplicated; F17.210 Nicotine dependence, cigarettes, uncomplicated
CPT/HCPCS: 56405

== ENCOUNTER 2024-01-26 17:52 | Emergency (ER) | payer SELFPAY ==
[2024-01-26 19:22] LABS: Influenza A by NAA Not Detected (NotDetected); Influenza B by NAA Not Detected (NotDetected); SARS-CoV-2 NAA Rapid Test Not Detected (NotDetected)
== END 2024-01-26 19:48 | disposition home or self-care (01) ==
LOC: ERS 17:52
DX: B34.9 Viral infection, unspecified (principal); I10 Essential (primary) hypertension; F17.210 Nicotine dependence, cigarettes, uncomplicated; Z20.822 Contact with and (suspected) exposure to COVID-19
CPT/HCPCS: 99283